=== PATIENT | female | born 1945 | race Caucasian/White ===

== ENCOUNTER 2020-01-16 07:29 | Outpatient (CLI) | payer MEDICARE, SELFPAY ==
[2020-01-16 08:27] LABS: Alanine Aminotransferase 16 U/L (4-35); Albumin Level 4.5 g/dL (3.5-5.1); Alkaline Phosphatase 92 U/L (38-126); Aspartate Amino Transferase 25 U/L (14-36); Bilirubin,Total 0.7 mg/dL (0.2-1.3); Blood Urea Nitrogen 21 mg/dL (7-17); Calcium 9.5 mg/dL (8.4-10.2); Carbon Dioxide 28 mmol/L (22-30); Chloride 101 mmol/L (98-107); Estimated Glomerular Filt Rate > 60; Glucose 146 mg/dL (65-105); Potassium 4.1 mmol/L (3.4-5.0); Sodium 137 mmol/L (137-145)
[2020-01-16 09:10] LABS: Hemoglobin A1C 7.9 % (<5.7)
[2020-01-16 09:13] LABS: Creatinine Urine 48.7 mg/dL
[2020-01-16 10:21] LABS: MALB Creatinine Ratio 1401.6 mg/g (0-30); Microalbumin Urine Random 682.6 mg/L (0-16.7)
== END 2020-01-16 07:30 | disposition home or self-care (01) ==
LOC: ANHLAB 07:33
PROVIDERS: PCP Internal Medicine; Visit Provider Internal Medicine
DX: E11.65 Type 2 diabetes mellitus with hyperglycemia (principal)
CPT/HCPCS: 36415; 80053; 82043; 83036

== ENCOUNTER 2020-04-17 07:06 | Outpatient (CLI) | payer MEDICARE, SELFPAY ==
[2020-04-17 08:06] LABS: Basophils Absolute Auto 0.1 K/mm3 (0.0-0.1); Basophils Percent Auto 0.6 % (0.2-1.2); Eosinophils Absolute Auto 0.1 K/mm3 (0-0.3); Eosinophils Percent Auto 1.7 % (0-4.4); Hematocrit 42.2 % (37.0-47.0); Hemoglobin 13.9 g/dL (12.0-15.0); Immature Granulocyte Absolute 0.04 K/mm3 (0.00-0.031); Immature Granulocyte Percent A 0.5 % (0-0.5); Lymphocytes Absolute Auto 1.83 K/mm3 (0.9-3.2); Lymphocytes Percent Auto 22.2 % (18.3-44.2); Mean Corpuscular HGB Conc 32.9 g/dl (32-36); Mean Corpuscular Hemoglobin 29.6 pg (26-34); Mean Corpuscular Volume 89.8 fl (80-100); Mean Platelet Volume 10.4 fl (7.4-10.4); Monocytes Absolute Auto 0.8 K/mm3 (0.1-0.6); Monocytes Percent Auto 9.3 % (2.6-8.5); Neutrophils Absolute Auto 5.4 K/mm3 (1.3-6.7); Neutrophils Percent Auto 65.7 % (45.5-73.1); Platelet Count Result 187 k/mm3 (150-375); Red Cell Distribution Width 13.3 % (11.5-14.5); White Blood Count 8.2 K/mm3 (4.5-10.0)
[2020-04-17 08:21] LABS: Alanine Aminotransferase 18 U/L (4-35); Albumin Level 4.2 g/dL (3.5-5.1); Alkaline Phosphatase 86 U/L (38-126); Anion Gap 11 mmol/L (8-16); Aspartate Amino Transferase 25 U/L (14-36); Bilirubin,Total 0.5 mg/dL (0.2-1.3); Blood Urea Nitrogen 22 mg/dL (7-17); Calcium 9.3 mg/dL (8.4-10.2); Carbon Dioxide 28 mmol/L (22-30); Chloride 105 mmol/L (98-107); Cholesterol 158 mg/dL (0-200); Estimated Glomerular Filt Rate 55; Glucose 127 mg/dL (65-105); HDL Direct 34 mg/dL; Potassium 3.8 mmol/L (3.4-5.0); Sodium 144 mmol/L (137-145); Triglycerides 168 mg/dL (<150)
[2020-04-17 08:31] LABS: LDL Cholesterol Direct 83 mg/dL
[2020-04-17 08:39] LABS: Hemoglobin A1C 6.8 % (<5.7)
[2020-04-17 08:49] LABS: Creatinine Urine 55.6 mg/dL
[2020-04-17 09:04] LABS: Vitamin D 25 Hydroxy 39.9 ng/mL
[2020-04-17 10:23] LABS: Microalbumin Urine Random 682.8 mg/L (0-16.7)
== END 2020-04-17 07:07 | disposition home or self-care (01) ==
PROVIDERS: PCP Internal Medicine; Visit Provider Internal Medicine
DX: E55.9 Vitamin D deficiency, unspecified (principal); E11.69 Type 2 diabetes mellitus with other specified complication; E78.5 Hyperlipidemia, unspecified
CPT/HCPCS: 36415; 80053; 80061; 82043; 82306; 83036; 85025

== ENCOUNTER 2020-04-24 10:20 | Outpatient (CLI) | payer MEDICARE, SELFPAY ==
--- NOTE | ~2020-04-24 | XR_ITS ---
XR shoulder RT min 2V DATE: 04/24/2020 10:43 INDICATION: Right anterior shoulder pain TECHNIQUE: 4 views COMPARISON: None FINDINGS: There is joint space narrowing and spurring at the acromioclavicular joint. No fracture or dislocation, periosteal reaction or bone destruction. No abnormal soft tissue calcific ation of the right shoulder. Degenerative changes of the cervical and thoracic spine are noted. IMPRESSION: Degenerative change at acromioclavicular joint Reviewed, dictated and finalized at location A.
== END 2020-04-24 10:21 | disposition home or self-care (01) ==
LOC: ANHIMG 10:24
PROVIDERS: PCP Internal Medicine; Visit Provider Internal Medicine
DX: M25.519 Pain in unspecified shoulder (principal)
CPT/HCPCS: 73030

== ENCOUNTER 2020-04-27 09:52 | Outpatient (CLI) | payer MEDICARE, SELFPAY ==
[2020-04-27 10:19] LABS: Total Protein Urine Random 73 mg/dL
[2020-04-27 10:28] LABS: Total Protein Urine 24 Hr 1241 MG/DAY (28-141); Total Volume 24 Hour Urine 1700 ml
== END 2020-04-27 09:53 | disposition home or self-care (01) ==
PROVIDERS: PCP Internal Medicine; Visit Provider Internal Medicine
DX: E11.29 Type 2 diabetes mellitus with other diabetic kidney complication (principal); R80.9 Proteinuria, unspecified
CPT/HCPCS: 81050; 84156

== ENCOUNTER 2020-05-06 13:15 | Outpatient (CLI) | payer MEDICARE, SELFPAY ==
--- NOTE | ~2020-05-06 | US_ITS ---
US renal BI 05/06/2020 13:47 Procedure: Realtime transabdominal ultrasound of the kidneys and bladder. Indication: Proteinuria Comparison: No prior studies for comparison. Findings: Renal echotexture is normal bilaterally without hydronephrosis, contour deforming mass or r enal calculus. The right kidney measures 10.1 cm and left kidney measures 10.2 cm. Bladder within no rmal limits. Impression: 1: Unremarkable renal ultrasound. No stones, masses or hydronephrosis. Reviewed, dictated and finalized at location B. Impression: 1: Unremarkable renal ultrasound. No stones, masses or hydronephrosis.
== END 2020-05-06 13:16 | disposition home or self-care (01) ==
PROVIDERS: PCP Internal Medicine; Visit Provider Internal Medicine
DX: R80.9 Proteinuria, unspecified (principal)
CPT/HCPCS: 76775

== ENCOUNTER 2020-05-12 16:13 | Outpatient (CLI) | payer MEDICARE, SELFPAY ==
--- NOTE | ~2020-05-12 | MM_ITS ---
EXAMINATION: MM screening [facility] BI w madhavi HISTORY: Screening mammogram TECHNIQUE: Craniocaudal and mediolateral oblique 3-D tomosynthesis images were obtained and synthetic 2-D images were generated. CAD analysis was submitted and interpreted. COMPARISON: 02/27/2019, 01/02/2012, 01/05/2011 BREAST PARENCHYMAL COMPOSITION: There are scattered areas of fibroglandular density. FINDINGS: Scattered benign-appearing calcifications are present. There is no evidence of suspicious m ass, calcification, or architectural distortion to suggest malignancy in either breast. There has bee n no suspicious interval change. IMPRESSION: 1. No mammographic evidence of malignancy. 2. Recommend routine screening mammography in one year. BI-RADS Category 2: Benign finding(s). Reviewed, dictated and finalized at location A.
== END 2020-05-12 16:14 | disposition home or self-care (01) ==
PROVIDERS: PCP Internal Medicine; Visit Provider Internal Medicine
DX: Z12.31 Encounter for screening mammogram for malignant neoplasm of breast (principal)
CPT/HCPCS: 77063; 77067

== ENCOUNTER 2020-06-15 10:48 | Outpatient (CLI) | payer MEDICARE, SELFPAY ==
[2020-06-15 11:52] LABS: Hematocrit 43.9 % (37.0-47.0); Hemoglobin 14.8 g/dL (12.0-15.0); Mean Corpuscular HGB Conc 33.7 g/dl (32-36); Mean Platelet Volume 10.4 fl (7.4-10.4); Platelet Count Result 192 k/mm3 (150-375); Red Blood Count 4.93 M/mm3 (4.2-5.4); Red Cell Distribution Width 13.4 % (11.5-14.5); White Blood Count 7.9 K/mm3 (4.5-10.0)
[2020-06-15 12:02] LABS: Add Urine Microscopic? YES; Appearance Urine Clear (Clear); Bacteria Urine Trace /hpf; Bilirubin Urine Negative (Negative); Blood Urine Negative (Negative); Color Urine Straw (Yellow); Glucose Urine UA 3+ mg/dL (Negative); Ketones Urine Negative (Negative); Leukocyte Esterase Ur Negative LEU/UL (NEGATIVE); Nitrate Urine Negative (Negative); Protein Urine 2+ mg/dL (Negative); RBC Urine 0-2 /hpf (0-2); Specific Grav Ur 1.016 (1.001-1.035); Squamous Epithelial Cell Urine Occasional /hpf (Few); Urobilinogen Urine Negative mg/dL (<2.0); WBC Urine 0-3 /hpf (0-3)
[2020-06-15 12:04] LABS: Albumin Level 4.3 g/dL (3.5-5.1); Anion Gap 7 mmol/L (8-16); Blood Urea Nitrogen 20 mg/dL (7-17); Calcium 9.8 mg/dL (8.4-10.2); Carbon Dioxide 32 mmol/L (22-30); Chloride 103 mmol/L (98-107); Estimated Glomerular Filt Rate > 60; Glucose 135 mg/dL (65-105); Phosphorus 3.9 mg/dL (2.5-4.5); Sodium 142 mmol/L (137-145)
[2020-06-15 12:10] LABS: Creatinine Urine 43.7 mg/dL; Total Protein Urine Random 84 mg/dL
[2020-06-15 12:11] LABS: Complement C3 157 mg/dL (88-165)
[2020-06-15 12:15] LABS: Parathyroid Intact 17.5 pg/mL (7.5-53.5)
[2020-06-15 12:52] LABS: Erythrocyte Sedimentation Rate 24 mm/hr (0-20)
[2020-06-17 14:34] LABS: Complement Total CH50 >60 U/mL (31-60)
[2020-06-17 23:23] LABS: Anti Nuclear Antibody Pattern Nuclear, Nucleolar
[2020-06-18 14:42] LABS: Kappa\\Lambda Light Chains 1.37 (0.26-1.65); Lambda Light Chain 19.6 mg/L (5.7-26.3)
== END 2020-06-15 10:49 | disposition home or self-care (01) ==
LOC: ANHLAB 10:52
PROVIDERS: PCP Internal Medicine; Visit Provider Internal Medicine Nephrology
DX: N18.30 Chronic kidney disease, stage 3 unspecified (principal); R80.1 Persistent proteinuria, unspecified
CPT/HCPCS: 36415; 80069; 81001; 82570; 83883; 83970; 84156; 85027; 85652; 86038; 86039; 86160; 86162; 86334

== ENCOUNTER 2020-06-22 07:11 | Outpatient (CLI) | payer MEDICARE, SELFPAY ==
[2020-06-25 15:05] LABS: Kappa & Lambda Quant. Has been added
[2020-07-02 08:06] LABS: Measured Kappa Chains 4.08 mg/dL (<2.00); Total Kappa Chains 77.52 mg/24 h
== END 2020-06-22 07:12 | disposition home or self-care (01) ==
PROVIDERS: PCP Internal Medicine; Visit Provider Internal Medicine Nephrology
DX: N18.31 Chronic kidney disease, stage 3a (principal); R80.1 Persistent proteinuria, unspecified
CPT/HCPCS: 83883; 86335

== ENCOUNTER 2020-07-22 07:12 | Outpatient (CLI) | payer MEDICARE, SELFPAY ==
[2020-07-22 08:24] LABS: Alanine Aminotransferase 15 U/L (4-35); Albumin Level 4.1 g/dL (3.5-5.1); Alkaline Phosphatase 95 U/L (38-126); Anion Gap 6 mmol/L (8-16); Aspartate Amino Transferase 24 U/L (14-36); Bilirubin,Total 0.6 mg/dL (0.2-1.3); Blood Urea Nitrogen 22 mg/dL (7-17); Calcium 9.9 mg/dL (8.4-10.2); Carbon Dioxide 30 mmol/L (22-30); Chloride 105 mmol/L (98-107); Estimated Glomerular Filt Rate 55; Glucose 132 mg/dL (65-105); Potassium 4.1 mmol/L (3.4-5.0); Sodium 141 mmol/L (137-145)
[2020-07-22 08:26] LABS: Hemoglobin A1C 6.9 % (<5.7)
[2020-07-22 08:55] LABS: Thyroid Stimulating Hormone 0.121 uIU/mL (0.465-4.680)
[2020-07-22 10:26] LABS: Creatinine Urine 68.9 mg/dL
[2020-07-22 12:00] LABS: Microalbumin Urine Random > 1140.0 mg/L (0-16.7)
== END 2020-07-22 07:13 | disposition home or self-care (01) ==
PROVIDERS: PCP Internal Medicine; Visit Provider Internal Medicine
DX: E11.65 Type 2 diabetes mellitus with hyperglycemia (principal); E03.9 Hypothyroidism, unspecified; Z79.4 Long term (current) use of insulin
CPT/HCPCS: 36415; 80053; 82043; 83036; 84443

== ENCOUNTER 2020-07-24 09:28 | Outpatient (CLI) | payer MEDICARE, SELFPAY ==
[2020-07-24 10:02] LABS: Basophils Absolute Auto 0.1 K/mm3 (0.0-0.1); Basophils Percent Auto 0.6 % (0.2-1.2); Eosinophils Absolute Auto 0.1 K/mm3 (0-0.3); Eosinophils Percent Auto 1.1 % (0-4.4); Hematocrit 46.1 % (37.0-47.0); Hemoglobin 14.9 g/dL (12.0-15.0); Immature Granulocyte Absolute 0.07 K/mm3 (0.00-0.031); Immature Granulocyte Percent A 0.8 % (0-0.5); Lymphocytes Absolute Auto 1.55 K/mm3 (0.9-3.2); Lymphocytes Percent Auto 18.3 % (18.3-44.2); Mean Corpuscular HGB Conc 32.3 g/dl (32-36); Mean Corpuscular Hemoglobin 28.7 pg (26-34); Mean Corpuscular Volume 88.8 fl (80-100); Monocytes Absolute Auto 0.6 K/mm3 (0.1-0.6); Monocytes Percent Auto 7.3 % (2.6-8.5); Neutrophils Absolute Auto 6.1 K/mm3 (1.3-6.7); Neutrophils Percent Auto 71.9 % (45.5-73.1); Platelet Count Result 208 k/mm3 (150-375); Red Blood Count 5.19 M/mm3 (4.2-5.4); Red Cell Distribution Width 13.7 % (11.5-14.5); White Blood Count 8.5 K/mm3 (4.5-10.0)
[2020-07-24 14:40] LABS: Alanine Aminotransferase 17 U/L (4-35); Albumin Level 4.4 g/dL (3.5-5.1); Alkaline Phosphatase 99 U/L (38-126); Anion Gap 10 mmol/L (8-16); Aspartate Amino Transferase 24 U/L (14-36); Bilirubin,Total 0.7 mg/dL (0.2-1.3); Blood Urea Nitrogen 23 mg/dL (7-17); Calcium 9.9 mg/dL (8.4-10.2); Carbon Dioxide 28 mmol/L (22-30); Chloride 104 mmol/L (98-107); Estimated Glomerular Filt Rate > 60; Glucose 173 mg/dL (65-105); Potassium 3.9 mmol/L (3.4-5.0); Sodium 142 mmol/L (137-145)
[2020-07-24 15:27] LABS: Immunoglobulin A 317 mg/dL (70-400); Immunoglobulin G 1319 mg/dL (700-1600); Immunoglobulin M 65 mg/dL (40-230)
[2020-07-27 22:07] LABS: Albumin 4.1 g/dL (3.8-4.8); Alpha 1 Globulin 0.3 g/dL (0.2-0.3); Alpha 2 Globulin 1.3 g/dL (0.5-0.9); Beta 1 Globulin 0.5 g/dL (0.4-0.6); Gamma Globulin 1.2 g/dL (0.8-1.7); Protein, Total 7.8 g/dL (6.1-8.1)
[2020-07-29 01:37] LABS: Kappa\\Lambda Light Chains 1.28 (0.26-1.65); Lambda Light Chain 23.1 mg/L (5.7-26.3)
[2020-07-29 20:35] LABS: Beta-2-Microglobulin 2.93 mg/L (<=2.51)
== END 2020-07-24 09:29 | disposition home or self-care (01) ==
LOC: ANHLAB 09:30
PROVIDERS: PCP Internal Medicine; Visit Provider Internal Medicine Hematology & Oncology
DX: D47.2 Monoclonal gammopathy (principal)
CPT/HCPCS: 36415; 80053; 82232; 82784; 83883; 84155; 84165; 85025

== ENCOUNTER 2020-09-08 09:00 | Outpatient (CLI) | payer MEDICARE, SELFPAY ==
[2020-09-08 09:55] LABS: Potassium 4.2 mmol/L (3.4-5.0)
[2020-09-08 10:04] LABS: Creatinine Urine 49.3 mg/dL; Total Protein Urine Random 101 mg/dL; Ur Ttl Prot Creatinine Ratio 2.05 mg/mg (0-0.20)
[2020-09-08 10:05] LABS: Albumin Level 4.1 g/dL (3.5-5.1); Anion Gap 5 mmol/L (8-16); Blood Urea Nitrogen 20 mg/dL (7-17); Calcium 9.7 mg/dL (8.4-10.2); Carbon Dioxide 32 mmol/L (22-30); Chloride 103 mmol/L (98-107); Estimated Glomerular Filt Rate > 60; Glucose 159 mg/dL (65-105); Phosphorus 3.7 mg/dL (2.5-4.5); Sodium 140 mmol/L (137-145)
== END 2020-09-08 09:01 | disposition home or self-care (01) ==
PROVIDERS: PCP Internal Medicine; Visit Provider Internal Medicine Nephrology
DX: N18.30 Chronic kidney disease, stage 3 unspecified (principal); R80.9 Proteinuria, unspecified
CPT/HCPCS: 36415; 80069; 82570; 84156

== ENCOUNTER → 2020-09-28 02:53 | Outpatient (CLI) | payer MEDICARE, SELFPAY ==
[2020-09-28 21:05] LABS: SARS-CoV-2 RNA PCR Negative
== END ==
PROVIDERS: PCP Internal Medicine; Visit Provider Internal Medicine Nephrology
DX: Z01.812 Encounter for preprocedural laboratory examination (principal); Z20.822 Contact with and (suspected) exposure to COVID-19
CPT/HCPCS: C9803; U0003; U0005

== ENCOUNTER 2020-10-01 08:07 | Outpatient (CLI) | payer MEDICARE, SELFPAY ==
[2020-09-17 14:18] VITALS: BMI 39.6
[2020-10-01] VITALS (11 sets, daily range): BP systolic 110–160; BP diastolic 33–91; PULSE 45–59; RESP 16–18; O2SAT 97–99
--- NOTE | ~2020-10-01 | US_ITS ---
EXAMINATION: US biopsy renal DATE: 10/01/2020 10:26 INDICATION: Proteinuria. TECHNIQUE: The procedure including the risks, benefits, and alternatives was discussed with the patie nt. Risks discussed included bleeding and infection. The patient understood the risks and agreed to p roceed. A timeout was performed to verify the patient's name, date of , and procedure to be p erformed. The skin overlying the left kidney was prepped and draped in usual sterile fashion. Anest hetic was administered with 1% lidocaine subcutaneously. An 18 gauge core biopsy needle was then use d to obtain 3 core biopsy specimens under continuous sonographic guidance. The entry site was cleaned and dressed. There were no immediate complications. FINDINGS: Ultrasound images demonstrate the needle in the kidney. IMPRESSION: 1. Ultrasound-guided random left kidney core needle biopsy. Reviewed, dictated and finalized at location A.
[2020-10-01 09:01] LABS: Mean Platelet Volume 10.3 fl (7.4-10.4); Platelet Count Result 188 k/mm3 (150-375)
[2020-10-01 09:19] LABS: INR 0.9; Prothrombin Time 12.9 Seconds (11.1-14.7)
[2020-10-01 11:00] LABS: Glucose Point of Care 117 (65-105)
== END 2020-10-01 14:56 | disposition home or self-care (01) ==
PROVIDERS: Radiology Diagnostic Radiology; PCP Internal Medicine; Visit Provider Internal Medicine Nephrology
DX: R80.1 Persistent proteinuria, unspecified (principal); N26.9 Renal sclerosis, unspecified; E11.9 Type 2 diabetes mellitus without complications; Z51.81 Encounter for therapeutic drug level monitoring; Z79.899 Other long term (current) drug therapy
CPT/HCPCS: 36415; 50200; 76942; 82948; 85049; 85610; 88300; 88305; 88313; 88329; 88346; 88348; 88350

== ENCOUNTER 2021-01-26 07:45 | Outpatient (CLI) | payer MEDICARE, SELFPAY ==
[2021-01-26 12:58] LABS: Basophils Percent Auto 0.4 % (0.2-1.2); Eosinophils Absolute Auto 0.1 K/mm3 (0-0.3); Eosinophils Percent Auto 1.3 % (0-4.4); Hematocrit 43.4 % (37.0-47.0); Hemoglobin 13.6 g/dL (12.0-15.0); Immature Granulocyte Absolute 0.06 K/mm3 (0.00-0.031); Immature Granulocyte Percent A 0.8 % (0-0.5); Lymphocytes Absolute Auto 1.62 K/mm3 (0.9-3.2); Lymphocytes Percent Auto 20.5 % (18.3-44.2); Mean Corpuscular HGB Conc 31.3 g/dl (32-36); Mean Corpuscular Hemoglobin 28.6 pg (26-34); Mean Corpuscular Volume 91.2 fl (80-100); Mean Platelet Volume 10.6 fl (7.4-10.4); Monocytes Absolute Auto 0.7 K/mm3 (0.1-0.6); Monocytes Percent Auto 8.9 % (2.6-8.5); Neutrophils Absolute Auto 5.4 K/mm3 (1.3-6.7); Neutrophils Percent Auto 68.1 % (45.5-73.1); Platelet Count Result 194 k/mm3 (150-375); Red Blood Count 4.76 M/mm3 (4.2-5.4); Red Cell Distribution Width 13.7 % (11.5-14.5); White Blood Count 7.9 K/mm3 (4.5-10.0)
[2021-01-26 13:07] LABS: Alanine Aminotransferase 16 U/L (4-35); Alkaline Phosphatase 101 U/L (38-126); Anion Gap 9 mmol/L (8-16); Aspartate Amino Transferase 24 U/L (14-36); Bilirubin,Total 0.7 mg/dL (0.2-1.3); Blood Urea Nitrogen 17 mg/dL (7-17); Calcium 9.7 mg/dL (8.4-10.2); Carbon Dioxide 28 mmol/L (22-30); Chloride 104 mmol/L (98-107); Estimated Glomerular Filt Rate > 60; Glucose 124 mg/dL (65-105); Hemoglobin A1C 6.8 % (<5.7); Potassium 4.1 mmol/L (3.4-5.0); Sodium 141 mmol/L (137-145)
[2021-01-26 13:07] LABS: Phosphorus 3.9 mg/dL (2.5-4.5)
[2021-01-26 13:10] LABS: Creatinine Urine 65.9 mg/dL; Total Protein Urine Random 98 mg/dL; Ur Ttl Prot Creatinine Ratio 1.49 mg/mg (0-0.20)
[2021-01-26 13:13] LABS: Rheumatoid Factor < 8.6 IU/ML (<12)
[2021-01-26 13:14] LABS: Immunoglobulin A 288 mg/dL (70-400); Immunoglobulin G 1207 mg/dL (700-1600); Immunoglobulin M 57 mg/dL (40-230)
[2021-01-26 13:27] LABS: Creatinine Urine 66.4 mg/dL
[2021-01-26 13:49] LABS: MALB Creatinine Ratio 844.6 mg/g (0-30); Microalbumin Urine Random 560.8 mg/L (0-16.7)
[2021-01-28 23:03] LABS: Kappa\\Lambda Light Chains 1.41 (0.26-1.65); Lambda Light Chain 23.4 mg/L (5.7-26.3)
[2021-01-29 10:38] LABS: SM Antibody <1.0; SM/RNP Antibody <1.0
[2021-01-29 10:42] LABS: SS-A <1.0; SS-B <1.0
[2021-01-30 03:30] LABS: Albumin 3.7 g/dL (3.8-4.8); Alpha 1 Globulin 0.3 g/dL (0.2-0.3); Alpha 2 Globulin 1.2 g/dL (0.5-0.9); Beta 1 Globulin 0.5 g/dL (0.4-0.6); Gamma Globulin 1.1 g/dL (0.8-1.7); Protein, Total 7.3 g/dL (6.1-8.1)
[2021-01-30 12:33] LABS: ANCA Screen Negative (Negative)
[2021-01-31 18:46] LABS: Cryoglobulin, QL Negative (Negative)
[2021-02-02 12:00] LABS: Anti Nuclear Antibody Pattern Nuclear, Nucleolar
[2021-02-04 22:07] LABS: Anti Glomerular Basement Memb <1.0 AI (<1.0)
== END 2021-01-26 07:46 | disposition home or self-care (01) ==
PROVIDERS: PCP Internal Medicine; Referring Provider Internal Medicine Hematology & Oncology; Visit Provider Internal Medicine Nephrology
DX: E03.9 Hypothyroidism, unspecified (principal); N18.2 Chronic kidney disease, stage 2 (mild); R80.1 Persistent proteinuria, unspecified; R76.0 Raised antibody titer; D47.2 Monoclonal gammopathy; E11.29 Type 2 diabetes mellitus with other diabetic kidney complication; E11.69 Type 2 diabetes mellitus with other specified complication
CPT/HCPCS: 36415; 80053; 82043; 82570; 82595; 82784; 83036; 83520; 83883; 84100; 84155; 84156; 84165; 84443; 85025; 86021; 86038; 86039; 86225; 86235; 86430

== ENCOUNTER 2021-07-27 12:15 | Outpatient (CLI) | payer MEDICARE, SELFPAY ==
[2021-07-27 12:49] LABS: Albumin Level 4.4 g/dL (3.5-5.1); Anion Gap 11 mmol/L (8-16); Blood Urea Nitrogen 24 mg/dL (7-17); Calcium 9.7 mg/dL (8.4-10.2); Carbon Dioxide 27 mmol/L (22-30); Chloride 101 mmol/L (98-107); Estimated Glomerular Filt Rate > 60; Glucose 160 mg/dL (65-110); Phosphorus 4.1 mg/dL (2.5-4.5); Potassium 4.4 mmol/L (3.4-5.0); Sodium 139 mmol/L (137-145)
[2021-07-27 12:50] LABS: Creatinine Urine 53.4 mg/dL; Total Protein Urine Random 150 mg/dL; Ur Ttl Prot Creatinine Ratio 2.81 mg/mg (0-0.20)
== END 2021-07-27 12:16 | disposition home or self-care (01) ==
LOC: ANHLAB 12:19
PROVIDERS: PCP Internal Medicine; Visit Provider Internal Medicine Nephrology
DX: N18.30 Chronic kidney disease, stage 3 unspecified (principal); R80.1 Persistent proteinuria, unspecified
CPT/HCPCS: 36415; 80069; 82570; 84156

== ENCOUNTER 2021-08-24 08:35 | Outpatient (CLI) | payer MEDICARE, SELFPAY ==
[2021-08-24 15:10] LABS: Hematocrit 44.6 % (37.0-47.0); Hemoglobin 14.6 g/dL (12.0-15.0); Mean Corpuscular HGB Conc 32.7 g/dl (32-36); Mean Corpuscular Hemoglobin 29.3 pg (26-34); Mean Corpuscular Volume 89.4 fl (80-100); Mean Platelet Volume 10.7 fl (7.4-10.4); Platelet Count Result 200 k/mm3 (150-375); Red Blood Count 4.99 M/mm3 (4.2-5.4); White Blood Count 7.6 K/mm3 (4.5-10.0)
[2021-08-24 15:16] LABS: Cholesterol 212 mg/dL (0-200); HDL Direct 30 mg/dL; Triglycerides 224 mg/dL (<150)
[2021-08-24 15:26] LABS: LDL Cholesterol Direct 117 mg/dL
[2021-08-24 15:30] LABS: Vitamin D 25 Hydroxy 50.6 ng/mL
[2021-08-24 16:00] LABS: MALB Creatinine Ratio 888.7 mg/g (0-30); Microalbumin Urine Random 613.2 mg/L (0-16.7)
[2021-08-24 18:03] LABS: Hemoglobin A1C 6.9 % (<5.7)
== END 2021-08-24 08:36 | disposition home or self-care (01) ==
LOC: ANHWCLAB 08:39
PROVIDERS: PCP Internal Medicine; Visit Provider Internal Medicine
DX: E03.9 Hypothyroidism, unspecified (principal); E11.21 Type 2 diabetes mellitus with diabetic nephropathy; I10 Essential (primary) hypertension; Z79.4 Long term (current) use of insulin; E78.2 Mixed hyperlipidemia
CPT/HCPCS: 36415; 80061; 82043; 82306; 83036; 85027

== ENCOUNTER 2021-12-27 13:26 | Outpatient (CLI) | payer MEDICARE, SELFPAY ==
--- NOTE | ~2021-12-27 | MM_ITS ---
EXAMINATION: MM screening [facility] BI w madhavi HISTORY: Screening TECHNIQUE: Craniocaudal and mediolateral oblique 3-D tomosynthesis images were obtained and synthetic 2-D images were generated. CAD analysis was submitted and interpreted. COMPARISON: Comparison to multiple prior studies sequentially, with oldest reviewed study dated 01/01. BREAST PARENCHYMAL COMPOSITION: There are scattered areas of fibroglandular density. FINDINGS: There is no evidence of suspicious mass, calcification, or architectural distortion to sugg est malignancy in either breast. There has been no suspicious interval change. IMPRESSION: 1. No mammographic evidence of malignancy. 2. Recommend routine screening mammography in one year. BI-RADS Category 1: Negative Reviewed, dictated and finalized at location A.
--- NOTE | ~2021-12-27 | DEXA_ITS ---
Bone Density Report Name: SHARLA SAUL Age: 76 Sex: Female Ethnicity: White Date of : 1945 Indication: postmenopausal; screening for osteoporosis; height loss; hysterectomy; Referring Provider: STEF MONTES Study: Bone densitometry was performed. Exam Date: December 27, 2021 Accession number: [id number] Bone Density: Region BMD T-score Z-score Classification AP Spine(L1-L4) 1.454 3.7 6.0 Normal Femoral Neck (Left) 1.063 1.9 4.0 Normal Total Hip (Left) 1.289 2.8 4.6 Normal Femoral Neck (Right) 1.073 2.0 4.0 Normal Total Hip (Right) 1.270 2.7 4.4 Normal Total Hip Mean 1.280 2.8 4.5 Normal World Health Organization criteria for BMD impression classify patients as: Normal (T-score at or above -1.0), Osteopenia (T-score between -1.0 and -2.5), or Osteoporosis (T-score at or below -2.5). 10-year Fracture Risk: FRAX not reported because: All T-scores for Spine Total, Hip Total, Femoral Neck at or above -1.0 Previous Exams: Region Exam Age BMD T-score BMD Change BMD Change Date g/cm2 vs Baseline vs Previous AP Spine (L1-L4) 12/27/2021 76 1.454 3.7 0.014 (1.0%) 0.014 (1.0%) 03/13/2019 73 1.440 3.6 Total Hip(Left) 12/27/2021 76 1.289 2.8 -0.089 (-6.4%) -0.089 (-6.4%) 03/13/2019 73 1.378 3.6 Total Hip(Right) 12/27/2021 76 1.270 2.7 -0.094 (-6.9%) -0.094 (-6.9%) 03/13/2019 73 1.364 3.5 *Denotes significance at 95% confidence level, LSC for AP Spine = 0.022 g/cm2, LSC for Total Hip = 0.027 g/cm2 Clinical Information Provided by Patient: Has used the following medications: Vitamin D, Calcium Has the following medical conditions: Hysterectomy Patient maximum height was 64 Menopause Age: 48 No regular weight bearing exercise Onset of menses at age 12 Number of children 0 Impression: The patient has normal bone mass. The BMD for the Total Hip(Left) decreased, changing by -6.4% since the last DXA exam. The BMD for the Total Hip(Right) decreased, changing by -6.9% since the last DXA exam. Discussion: LOW RISK OF FRACTURE; BONE DENSITY IS WELL ABOVE THE MINIMUM DESIRABLE LEVEL AND ABOVE AVERAGE FOR AGE AND SEX AT ALL SKELETAL SITES TESTED. This person's bone density is above expected limits for age and sex. This is rarely clinically significant, but should be pursued if there are significant musculoskeletal complaints. The patient should follow a healthful lifestyle (good nutrition with adequate calciu
== END 2021-12-27 13:27 | disposition home or self-care (01) ==
PROVIDERS: PCP Internal Medicine; Visit Provider Internal Medicine
DX: Z12.31 Encounter for screening mammogram for malignant neoplasm of breast (principal); Z78.0 Asymptomatic menopausal state
CPT/HCPCS: 77063; 77067; 77080

== ENCOUNTER 2022-01-18 08:48 | Outpatient (CLI) | payer MEDICARE, SELFPAY ==
[2022-01-18 09:30] LABS: Basophils Absolute Auto 0.1 K/mm3 (0.0-0.1); Basophils Percent Auto 0.6 % (0.2-1.2); Eosinophils Absolute Auto 0.1 K/mm3 (0-0.3); Eosinophils Percent Auto 1.4 % (0-4.4); Hematocrit 40.4 % (37.0-47.0); Hemoglobin 13.2 g/dL (12.0-15.0); Immature Granulocyte Absolute 0.05 K/mm3 (0.00-0.031); Immature Granulocyte Percent A 0.6 % (0-0.5); Lymphocytes Percent Auto 21.9 % (18.3-44.2); Mean Corpuscular HGB Conc 32.7 g/dl (32-36); Mean Corpuscular Hemoglobin 29.3 pg (26-34); Mean Corpuscular Volume 89.6 fl (80-100); Monocytes Absolute Auto 0.7 K/mm3 (0.1-0.6); Monocytes Percent Auto 8.6 % (2.6-8.5); Neutrophils Absolute Auto 5.2 K/mm3 (1.3-6.7); Neutrophils Percent Auto 66.9 % (45.5-73.1); Platelet Count Result 182 k/mm3 (150-375); Red Blood Count 4.51 M/mm3 (4.2-5.4); Red Cell Distribution Width 13.8 % (11.5-14.5); White Blood Count 7.8 K/mm3 (4.5-10.0)
[2022-01-18 09:40] LABS: Alanine Aminotransferase 16 U/L (6-35); Albumin Level 4.1 g/dL (3.5-5.1); Alkaline Phosphatase 82 U/L (38-126); Anion Gap 7 mmol/L (8-16); Aspartate Amino Transferase 22 U/L (14-36); Bilirubin,Total 0.6 mg/dL (0.2-1.3); Blood Urea Nitrogen 24 mg/dL (7-17); Calcium 9.4 mg/dL (8.4-10.2); Carbon Dioxide 26 mmol/L (22-30); Chloride 106 mmol/L (98-107); Estimated Glomerular Filt Rate 49; Glucose 187 mg/dL (65-110); Phosphorus 3.8 mg/dL (2.5-4.5); Sodium 139 mmol/L (137-145)
[2022-01-18 09:49] LABS: Immunoglobulin A 271 mg/dL (70-400); Immunoglobulin G 997 mg/dL (700-1600); Immunoglobulin M 49 mg/dL (40-230)
[2022-01-18 10:05] LABS: Creatinine Urine 34.2 mg/dL; Total Protein Urine Random 55 mg/dL; Ur Ttl Prot Creatinine Ratio 1.61 mg/mg (0-0.20)
[2022-01-20 19:04] LABS: Albumin 3.6 g/dL (3.8-4.8); Alpha 1 Globulin 0.3 g/dL (0.2-0.3); Alpha 2 Globulin 1.2 g/dL (0.5-0.9); Beta 1 Globulin 0.4 g/dL (0.4-0.6); Protein, Total 6.9 g/dL (6.1-8.1)
[2022-01-21 05:58] LABS: Kappa\\Lambda Light Chains 1.14 (0.26-1.65); Lambda Light Chain 27.7 mg/L (5.7-26.3)
== END 2022-01-18 08:49 | disposition home or self-care (01) ==
LOC: ANHLAB 08:53
PROVIDERS: PCP Internal Medicine; Referring Provider Internal Medicine Hematology & Oncology; Visit Provider Internal Medicine Nephrology
DX: D47.2 Monoclonal gammopathy (principal); I10 Essential (primary) hypertension
CPT/HCPCS: 36415; 80053; 80069; 82570; 82784; 83883; 84155; 84156; 84165; 85025

== ENCOUNTER 2022-02-22 10:18 | Outpatient (CLI) | payer MEDICARE, SELFPAY ==
[2022-02-22 11:33] LABS: Albumin Level 4.3 g/dL (3.5-5.1); Anion Gap 7 mmol/L (8-16); Blood Urea Nitrogen 21 mg/dL (7-17); Calcium 9.3 mg/dL (8.4-10.2); Carbon Dioxide 33 mmol/L (22-30); Chloride 100 mmol/L (98-107); Estimated Glomerular Filt Rate > 60; Glucose 143 mg/dL (65-110); Phosphorus 3.6 mg/dL (2.5-4.5); Potassium 4.1 mmol/L (3.4-5.0); Sodium 140 mmol/L (137-145)
== END 2022-02-22 10:19 | disposition home or self-care (01) ==
PROVIDERS: PCP Internal Medicine; Visit Provider Internal Medicine Nephrology
DX: N18.31 Chronic kidney disease, stage 3a (principal); I10 Essential (primary) hypertension
CPT/HCPCS: 36415; 80069

== ENCOUNTER 2022-04-26 07:49 | Outpatient (CLI) | payer MEDICARE, SELFPAY ==
[2022-04-26 08:14] LABS: Alanine Aminotransferase 19 U/L (6-35); Albumin Level 4.3 g/dL (3.5-5.1); Alkaline Phosphatase 74 U/L (38-126); Anion Gap 15 mmol/L (8-16); Aspartate Amino Transferase 23 U/L (14-36); Bilirubin,Total 0.7 mg/dL (0.2-1.3); Blood Urea Nitrogen 18 mg/dL (7-17); Calcium 9.6 mg/dL (8.4-10.2); Carbon Dioxide 29 mmol/L (22-30); Chloride 100 mmol/L (98-107); Cholesterol 137 mg/dL (0-200); Estimated Glomerular Filt Rate > 60; Glucose 154 mg/dL (65-110); HDL Direct 31 mg/dL; Potassium 3.8 mmol/L (3.4-5.0); Sodium 144 mmol/L (137-145); Triglycerides 236 mg/dL (<150)
[2022-04-26 08:25] LABS: LDL Cholesterol Direct 68 mg/dL
[2022-04-26 08:44] LABS: Hemoglobin A1C 7.5 % (<5.7)
== END 2022-04-26 07:50 | disposition home or self-care (01) ==
LOC: ANHLAB 07:52
PROVIDERS: PCP Internal Medicine; Visit Provider Nurse Practitioner
DX: E11.9 Type 2 diabetes mellitus without complications (principal); E78.5 Hyperlipidemia, unspecified
CPT/HCPCS: 36415; 80053; 80061; 83036

== ENCOUNTER 2022-07-25 12:06 | Outpatient (CLI) | payer MEDICARE, SELFPAY ==
[2022-07-25 12:48] LABS: Hematocrit 40.9 % (37.0-47.0); Hemoglobin 13.6 g/dL (12.0-15.0); Mean Corpuscular HGB Conc 33.3 g/dl (32-36); Mean Corpuscular Hemoglobin 29.2 pg (26-34); Mean Platelet Volume 10.1 fl (7.4-10.4); Platelet Count Result 192 k/mm3 (150-375); Red Blood Count 4.65 M/mm3 (4.2-5.4); Red Cell Distribution Width 13.2 % (11.5-14.5); White Blood Count 8.4 K/mm3 (4.5-10.0)
[2022-07-25 12:59] LABS: Albumin Level 4.2 g/dL (3.5-5.1); Anion Gap 7 mmol/L (8-16); Blood Urea Nitrogen 27 mg/dL (7-17); Calcium 9.3 mg/dL (8.4-10.2); Carbon Dioxide 31 mmol/L (22-30); Chloride 100 mmol/L (98-107); Estimated Glomerular Filt Rate 54; Glucose 148 mg/dL (65-110); Phosphorus 4.1 mg/dL (2.5-4.5); Sodium 138 mmol/L (137-145)
[2022-07-25 13:01] LABS: Total Protein Urine Random 63 mg/dL; Ur Ttl Prot Creatinine Ratio 1.07 mg/mg (0-0.20)
[2022-07-25 13:11] LABS: Parathyroid Intact 9.6 pg/mL (7.5-53.5)
== END 2022-07-25 12:07 | disposition home or self-care (01) ==
LOC: ANHLAB 12:12
PROVIDERS: PCP Nurse Practitioner; Visit Provider Internal Medicine Nephrology
DX: N18.31 Chronic kidney disease, stage 3a (principal)
CPT/HCPCS: 36415; 80069; 82570; 83970; 84156; 85027

== ENCOUNTER 2022-11-21 11:20 | Outpatient (CLI) | payer MEDICARE, SELFPAY ==
[2022-11-21 11:55] LABS: Hematocrit 43.4 % (37.0-47.0); Mean Corpuscular HGB Conc 32.3 g/dl (32-36); Mean Corpuscular Hemoglobin 29.5 pg (26-34); Mean Corpuscular Volume 91.4 fl (80-100); Mean Platelet Volume 10.4 fl (7.4-10.4); Platelet Count Result 201 k/mm3 (150-375); Red Blood Count 4.75 M/mm3 (4.2-5.4); Red Cell Distribution Width 13.6 % (11.5-14.5); White Blood Count 8.5 K/mm3 (4.5-10.0)
[2022-11-21 12:01] LABS: Creatinine Urine 49.1 mg/dL; Total Protein Urine Random 49 mg/dL
[2022-11-21 12:05] LABS: Albumin Level 4.8 g/dL (3.5-5.1); Anion Gap 10 mmol/L (8-16); Blood Urea Nitrogen 29 mg/dL (7-17); Calcium 10.1 mg/dL (8.4-10.2); Carbon Dioxide 30 mmol/L (22-30); Chloride 101 mmol/L (98-107); Estimated Glomerular Filt Rate 54; Glucose 126 mg/dL (65-110); Phosphorus 3.9 mg/dL (2.5-4.5); Potassium 4.2 mmol/L (3.4-5.0); Sodium 141 mmol/L (137-145)
[2022-11-21 12:16] LABS: Parathyroid Intact 6.3 pg/mL (7.5-53.5)
== END 2022-11-21 11:21 | disposition home or self-care (01) ==
PROVIDERS: PCP Family Medicine; Visit Provider Internal Medicine Nephrology
DX: E11.29 Type 2 diabetes mellitus with other diabetic kidney complication (principal); I10 Essential (primary) hypertension; R80.9 Proteinuria, unspecified
CPT/HCPCS: 36415; 80069; 82570; 83970; 84156; 85027

== ENCOUNTER 2023-01-27 06:49 | Outpatient (CLI) | payer MEDICARE, SELFPAY ==
[2023-01-27 07:49] LABS: Alanine Aminotransferase 22 U/L (6-35); Albumin Level 4.3 g/dL (3.5-5.1); Alkaline Phosphatase 67 U/L (38-126); Anion Gap 6 mmol/L (8-16); Aspartate Amino Transferase 27 U/L (14-36); Bilirubin,Total 0.6 mg/dL (0.2-1.3); Blood Urea Nitrogen 35 mg/dL (7-17); Carbon Dioxide 33 mmol/L (22-30); Chloride 102 mmol/L (98-107); Cholesterol 153 mg/dL (0-200); Estimated Glomerular Filt Rate 31; Glucose 151 mg/dL (65-110); HDL Direct 32 mg/dL; Phosphorus 4.1 mg/dL (2.5-4.5); Potassium 4.4 mmol/L (3.4-5.0); Sodium 141 mmol/L (137-145); Triglycerides 283 mg/dL (<150)
[2023-01-27 08:00] LABS: LDL Cholesterol Direct 69 mg/dL
[2023-01-27 08:17] LABS: Thyroid Stimulating Hormone 0.095 uIU/mL (0.465-4.680)
[2023-01-27 08:51] LABS: Hemoglobin A1C 7.8 % (<5.7)
== END 2023-01-27 06:50 | disposition home or self-care (01) ==
PROVIDERS: PCP Nurse Practitioner; Visit Provider Nurse Practitioner
DX: E78.5 Hyperlipidemia, unspecified (principal); E11.9 Type 2 diabetes mellitus without complications; E03.9 Hypothyroidism, unspecified; E55.9 Vitamin D deficiency, unspecified
CPT/HCPCS: 36415; 80053; 80061; 82306; 83036; 84100; 84443

== ENCOUNTER 2023-01-30 07:25 | Outpatient (CLI) | payer MEDICARE, SELFPAY ==
[2023-01-30 08:17] LABS: Basophils Percent Auto 0.5 % (0.2-1.2); Eosinophils Absolute Auto 0.1 K/mm3 (0-0.3); Eosinophils Percent Auto 1.4 % (0-4.4); Hematocrit 43.1 % (37.0-47.0); Hemoglobin 13.9 g/dL (12.0-15.0); Immature Granulocyte Absolute 0.06 K/mm3 (0.00-0.031); Immature Granulocyte Percent A 0.8 % (0-0.5); Lymphocytes Absolute Auto 1.73 K/mm3 (0.9-3.2); Lymphocytes Percent Auto 21.9 % (18.3-44.2); Mean Corpuscular HGB Conc 32.3 g/dl (32-36); Mean Corpuscular Hemoglobin 29.6 pg (26-34); Mean Corpuscular Volume 91.7 fl (80-100); Mean Platelet Volume 10.4 fl (7.4-10.4); Monocytes Absolute Auto 0.7 K/mm3 (0.1-0.6); Neutrophils Absolute Auto 5.3 K/mm3 (1.3-6.7); Neutrophils Percent Auto 66.4 % (45.5-73.1); Platelet Count Result 186 k/mm3 (150-375); Red Cell Distribution Width 13.5 % (11.5-14.5); White Blood Count 7.9 K/mm3 (4.5-10.0)
[2023-01-30 08:27] LABS: Alanine Aminotransferase 21 U/L (6-35); Albumin Level 4.3 g/dL (3.5-5.1); Alkaline Phosphatase 68 U/L (38-126); Anion Gap 9 mmol/L (8-16); Aspartate Amino Transferase 28 U/L (14-36); Bilirubin,Total 0.7 mg/dL (0.2-1.3); Blood Urea Nitrogen 30 mg/dL (7-17); Calcium 10.3 mg/dL (8.4-10.2); Carbon Dioxide 30 mmol/L (22-30); Chloride 101 mmol/L (98-107); Estimated Glomerular Filt Rate 48; Glucose 141 mg/dL (65-110); Potassium 3.9 mmol/L (3.4-5.0); Sodium 140 mmol/L (137-145)
[2023-01-30 08:37] LABS: Immunoglobulin A 292 mg/dL (70-400); Immunoglobulin G 1129 mg/dL (700-1600); Immunoglobulin M 64 mg/dL (40-230)
[2023-02-02 11:59] LABS: Albumin 4.1 g/dL (3.8-4.8); Alpha 1 Globulin 0.3 g/dL (0.2-0.3); Alpha 2 Globulin 1.3 g/dL (0.5-0.9); Beta 1 Globulin 0.5 g/dL (0.4-0.6); Gamma Globulin 1.2 g/dL (0.8-1.7); Protein, Total 7.8 g/dL (6.1-8.1)
[2023-02-10 14:42] LABS: Kappa\\Lambda Light Chains 1.13
== END 2023-01-30 07:26 | disposition home or self-care (01) ==
LOC: ANHLAB 07:29
PROVIDERS: PCP Nurse Practitioner; Visit Provider Internal Medicine Hematology & Oncology
DX: D47.2 Monoclonal gammopathy (principal)
CPT/HCPCS: 36415; 80053; 82784; 83883; 84155; 84165; 85025

== ENCOUNTER 2023-05-29 10:48 | Outpatient (CLI) | payer MEDICARE, SELFPAY ==
[2023-05-29 11:35] LABS: Hematocrit 41.3 % (37.0-47.0); Hemoglobin 13.3 g/dL (12.0-15.0); Mean Corpuscular HGB Conc 32.2 g/dl (32-36); Mean Corpuscular Hemoglobin 29.4 pg (26-34); Mean Corpuscular Volume 91.2 fl (80-100); Mean Platelet Volume 10.3 fl (7.4-10.4); Platelet Count Result 213 k/mm3 (150-375); Red Blood Count 4.53 M/mm3 (4.2-5.4); Red Cell Distribution Width 13.5 % (11.5-14.5)
[2023-05-29 11:47] LABS: Albumin Level 4.3 g/dL (3.5-5.1); Anion Gap 11 mmol/L (8-16); Blood Urea Nitrogen 20 mg/dL (7-17); Calcium 9.7 mg/dL (8.4-10.2); Carbon Dioxide 27 mmol/L (22-30); Chloride 106 mmol/L (98-107); Estimated Glomerular Filt Rate 54; Glucose 176 mg/dL (65-110); Phosphorus 2.9 mg/dL (2.5-4.5); Potassium 3.5 mmol/L (3.4-5.0); Sodium 144 mmol/L (137-145)
[2023-05-29 11:50] LABS: Creatinine Urine 56.1 mg/dL; Total Protein Urine Random 158 mg/dL; Ur Ttl Prot Creatinine Ratio 2.82 mg/mg (0-0.20)
[2023-05-29 12:00] LABS: Parathyroid Intact 45.4 pg/mL (7.5-53.5)
[2023-05-29 12:06] LABS: Vitamin D 25 Hydroxy 53.1 ng/mL
== END 2023-05-29 10:49 | disposition home or self-care (01) ==
PROVIDERS: PCP Nurse Practitioner; Visit Provider Internal Medicine Nephrology
DX: R79.89 Other specified abnormal findings of blood chemistry (principal); N18.31 Chronic kidney disease, stage 3a; E11.9 Type 2 diabetes mellitus without complications
CPT/HCPCS: 36415; 80069; 82306; 82570; 83970; 84156; 85027

== ENCOUNTER 2023-08-08 07:26 | Outpatient (CLI) | payer MEDICARE, SELFPAY ==
[2023-08-08 08:14] LABS: Alanine Aminotransferase 16 U/L (6-35); Albumin Level 4.1 g/dL (3.5-5.1); Alkaline Phosphatase 65 U/L (38-126); Anion Gap 8 mmol/L (8-16); Aspartate Amino Transferase 27 U/L (14-36); Bilirubin,Total 0.8 mg/dL (0.2-1.3); Blood Urea Nitrogen 30 mg/dL (7-17); Calcium 9.9 mg/dL (8.4-10.2); Carbon Dioxide 29 mmol/L (22-30); Chloride 103 mmol/L (98-107); Cholesterol 147 mg/dL (0-200); Estimated Glomerular Filt Rate 54; Glucose 142 mg/dL (65-110); HDL Direct 28 mg/dL; Potassium 4.5 mmol/L (3.4-5.0); Sodium 140 mmol/L (137-145); Triglycerides 263 mg/dL (<150)
[2023-08-08 08:16] LABS: Hemoglobin A1C 7.9 % (<5.7)
[2023-08-08 08:26] LABS: LDL Cholesterol Direct 74 mg/dL
[2023-08-08 08:32] LABS: Free T4 Free Thyroxine 1.45 ng/mL (0.78-2.19)
[2023-08-08 08:43] LABS: Thyroid Stimulating Hormone < 0.015 uIU/mL (0.465-4.680)
== END 2023-08-08 07:27 | disposition home or self-care (01) ==
LOC: ANHLAB 07:28
PROVIDERS: PCP Nurse Practitioner; Visit Provider Nurse Practitioner
DX: E78.5 Hyperlipidemia, unspecified (principal); E11.9 Type 2 diabetes mellitus without complications; E03.9 Hypothyroidism, unspecified
CPT/HCPCS: 36415; 80053; 80061; 83036; 84439; 84443

== ENCOUNTER 2023-09-25 08:19 | Outpatient (CLI) | payer MEDICARE, SELFPAY ==
[2023-09-25 09:09] LABS: Hematocrit 44.6 % (37.0-47.0); Hemoglobin 14.3 g/dL (12.0-15.0); Mean Corpuscular HGB Conc 32.1 g/dl (32-36); Mean Corpuscular Hemoglobin 29.1 pg (26-34); Mean Corpuscular Volume 90.7 fl (80-100); Mean Platelet Volume 10.3 fl (7.4-10.4); Platelet Count Result 204 k/mm3 (150-375); Red Blood Count 4.92 M/mm3 (4.2-5.4); White Blood Count 7.7 K/mm3 (4.5-10.0)
[2023-09-25 09:26] LABS: Albumin Level 4.5 g/dL (3.5-5.1); Anion Gap 7 mmol/L (8-16); Blood Urea Nitrogen 24 mg/dL (7-17); Calcium 10.3 mg/dL (8.4-10.2); Carbon Dioxide 26 mmol/L (22-30); Chloride 105 mmol/L (98-107); Estimated Glomerular Filt Rate 54; Glucose 246 mg/dL (65-110); Phosphorus 3.3 mg/dL (2.5-4.5); Potassium 4.1 mmol/L (3.4-5.0); Sodium 138 mmol/L (137-145)
[2023-09-25 09:31] LABS: Parathyroid Intact 38.4 pg/mL (7.5-53.5)
[2023-09-25 09:39] LABS: Creatinine Urine 33.6 mg/dL; Total Protein Urine Random 69 mg/dL; Ur Ttl Prot Creatinine Ratio 2.05 mg/mg (0-0.20)
[2023-09-25 09:49] LABS: Total Protein Urine Random 78 mg/dL
[2023-09-25 09:49] LABS: Thyroid Stimulating Hormone 0.642 uIU/mL (0.465-4.680)
[2023-09-25 09:51] LABS: Total Protein Urine 24 Hr 1872 mg/24hr (28-141); Total Volume 24 Hour Urine 2400 ml; Urea Nitrogen 24 Hour Urine 10.2 G/DAY (12-20)
[2023-09-25 10:15] LABS: Free T4 Free Thyroxine 1.41 ng/mL (0.78-2.19)
== END 2023-09-25 08:20 | disposition home or self-care (01) ==
PROVIDERS: PCP Nurse Practitioner; Visit Provider Internal Medicine Nephrology
DX: E03.9 Hypothyroidism, unspecified (principal); E11.9 Type 2 diabetes mellitus without complications; I12.9 Hypertensive chronic kidney disease with stage 1 through stage 4 chronic kidney disease, or unspecified chronic kidney disease; N18.31 Chronic kidney disease, stage 3a; Z79.4 Long term (current) use of insulin
CPT/HCPCS: 36415; 80069; 81050; 82570; 83970; 84156; 84439; 84443; 84540; 85027

== ENCOUNTER 2023-10-03 01:29 | Day surgery (SDC) | payer MEDICARE, SELFPAY ==
[2023-09-22 14:07] VITALS: BMI 38.7
[2023-10-03 06:58] VITALS: BP 149/55; PULSE 60; RESP 20; TEMP 36.4; O2SAT 99
[2023-10-03] MEDS: LACTATED RINGERS 1,000 ML 150 ML IV CONT (07:16)
[2023-10-03 07:17] LABS: Glucose Point of Care 103 mg/dl (65-105)
--- NOTE | 2023-10-03 07:41 | WPDANESEPPF ---
Anes - Initial Pre Proc Eval Procedure: Operation Date: 10/03/23 08:00 Proposed Procedures p Colonoscopy - Marv Braxton MD Date/Time: 10/03/23 07:41 Surgeon: Marv Braxton MD Pre Op Diagnosis: hx of colon polyps Patient Data Age: 77 Gender: F Height: 1.61 m Weight: 99.2 kg Last Vital Signs Temp 97.6 F 10/03/23 06:58 Pulse 60 10/03/23 06:58 Resp 20 10/03/23 06:58 BP 149/55 H 10/03/23 06:58 Pulse Ox 99 10/03/23 06:58 O2 Del Method Room Air 10/03/23 06:58 Allergies Allergy/AdvReac Type Severity Reaction Status Date / Time No Known Allergies Allergy Mild Verified 10/03/23 06:52 Home Medications Medication Instructions Recorded Confirmed Type pen needle, diabetic 32 gauge x #100 ea 06/25/20 08/15/23 Rx 5/16 (Comfort EZ Pen [place]) blood sugar diagnostic (Prodigy No See Rx Instructions .Route 11/02/22 08/15/23 Rx Coding strips) .COMPLEX #200 strips pen needle, diabetic 32 gauge x #100 ea 11/02/22 08/15/23 Rx 1/6 (NovoFine Plus) calcium carbonate 600 mg calcium 600 mg PO DAILY 02/03/23 09/22/23 History (1,500 mg) tablet (Calcium) cholecalciferol (vitamin D3) 125 125 mcg PO DAILY 02/03/23 09/22/23 History mcg (5,000 unit) capsule latanoprost 0.005 % eye drops 1 drp EACH EYE DAILY 02/03/23 09/22/23 History finerenone 10 mg tablet (Kerendia) 10 mg PO DAILY #90 tabs 06/13/23 09/22/23 Rx lisinopril 30 mg tablet 30 mg PO BID #180 tabs 06/13/23 10/03/23 Rx dapagliflozin 10 mg-saxagliptin 5 1 tablet PO DAILY #90 tabs 06/26/23 09/22/23 Rx mg tablet (Qtern) levothyroxine 137 mcg tablet 137 mcg PO DAILY #90 tabs 07/20/23 10/03/23 Rx (Synthroid) omeprazole 40 mg capsule,delayed 40 mg PO DAILY #90 caps 07/20/23 09/22/23 Rx release verapamil 240 mg 24 hr 240 mg PO DAILY #90 caps 07/20/23 10/03/23 Rx capsule,extended release rosuvastatin 40 mg tablet (Crestor) 40 mg PO DAILY #90 tabs 09/04/23 09/22/23 Rx insulin glargine 100 unit/mL (3 50 unit (0.5 mL) subcut DAILY #45 09/13/23 09/22/23 Rx mL) subcutaneous pen (Lantus mL Solostar U-100 Insulin) azelastine 137 mcg (0.1 %) nasal 137 mcg intranasal Q12H PRN 09/22/23 09/22/23 History spray aerosol Congestion Laboratory Tests 10/03/23 07:06 POC Capillary Glucose 103 mg/dl (65-105) Patient hx anesthesia problems: none Family hx anesthesia problems: none Results Review: All pre-operative results and documents have been reviewed as part of the pre-operative evaluation. ON LICENSE OF [facility] Past Medical History Medical History (Updated 08/15/23 @ 09:39 by Jake Granger APRN) CKD (chronic kidney disease) stage 3, GFR 30-59 ml/min Family History Family History Mother Family history of malignant neoplasm Social History Social History Smoking status: Never smoker Second hand tobacco smoke exposure: No Alcohol intake: current Substance use: never Substance use type: does not use Lack of Transportation: No Lack of Food: Never True Current Housing: I Have Housing Concerned About Future Housing: No Difficulty Paying Gas/Electric Bills: No Difficulty Paying for Meds: No Currently Unemployed: No Education: High School Diploma/GED Difficulty w/ Childcare or Family Care: No Living arrangements: with family Gender identity (if verbalized by the patient): Female Spiritual care concerns: No Anes - Eval Final PreProcedure Day of Procedure 10/03/23 07:41 Patient weight: normal Heart: regular rate and rhythm Lungs: clear to auscultation Airway: Mallampati scale class II Neurological: alert and oriented Last oral intake: >/= 8 hours ASA classification: III Emergent: no Anesthetic plan: proceed Anesthesia type and monitoring: general GIVS and standard monitoring Results Review: All pre-operative results and documents have bee
--- NOTE | 2023-10-03 07:52 | PM.HPGS ---
History of Present Illness History of Present Illness Consent: Risks, benefits, and alternatives have been discussed and questions answered. Patient agrees to proceed with procedure. Chief complaint: hx of colon polyps Narrative: Gladys Deluna is a 77 year old female with colon polyp 5 years ago Review of Systems Review of Systems: All systems reviewed & are unremarkable except as noted in HPI and below PMFSH Past Medical History Medical History (Updated 08/15/23 @ 09:39 by Jake Granger APRN) CKD (chronic kidney disease) stage 3, GFR 30-59 ml/min Family History Family History Mother Family history of malignant neoplasm Social History Social History Smoking status: Never smoker Second hand tobacco smoke exposure: No Alcohol intake: current Substance use: never Substance use type: does not use Lack of Transportation: No Lack of Food: Never True Current Housing: I Have Housing Concerned About Future Housing: No Difficulty Paying Gas/Electric Bills: No Difficulty Paying for Meds: No Currently Unemployed: No Education: High School Diploma/GED Difficulty w/ Childcare or Family Care: No Living arrangements: with family Gender identity (if verbalized by the patient): Female Spiritual care concerns: No Meds Home Medications and Allergies Home Medications Medication Instructions Recorded Confirmed Type pen needle, diabetic 32 gauge x #100 ea 06/25/20 08/15/23 Rx 5/16 (Comfort EZ Pen [place]) blood sugar diagnostic (Prodigy No See Rx Instructions .Route 11/02/22 08/15/23 Rx Coding strips) .COMPLEX #200 strips pen needle, diabetic 32 gauge x #100 ea 11/02/22 08/15/23 Rx 1/6 (NovoFine Plus) calcium carbonate 600 mg calcium 600 mg PO DAILY 02/03/23 09/22/23 History (1,500 mg) tablet (Calcium) cholecalciferol (vitamin D3) 125 125 mcg PO DAILY 02/03/23 09/22/23 History mcg (5,000 unit) capsule latanoprost 0.005 % eye drops 1 drp EACH EYE DAILY 02/03/23 09/22/23 History finerenone 10 mg tablet (Kerendia) 10 mg PO DAILY #90 tabs 06/13/23 09/22/23 Rx lisinopril 30 mg tablet 30 mg PO BID #180 tabs 06/13/23 10/03/23 Rx dapagliflozin 10 mg-saxagliptin 5 1 tablet PO DAILY #90 tabs 06/26/23 09/22/23 Rx mg tablet (Qtern) levothyroxine 137 mcg tablet 137 mcg PO DAILY #90 tabs 07/20/23 10/03/23 Rx (Synthroid) omeprazole 40 mg capsule,delayed 40 mg PO DAILY #90 caps 07/20/23 09/22/23 Rx release verapamil 240 mg 24 hr 240 mg PO DAILY #90 caps 07/20/23 10/03/23 Rx capsule,extended release rosuvastatin 40 mg tablet (Crestor) 40 mg PO DAILY #90 tabs 09/04/23 09/22/23 Rx insulin glargine 100 unit/mL (3 50 unit (0.5 mL) subcut DAILY #45 09/13/23 09/22/23 Rx mL) subcutaneous pen (Lantus mL Solostar U-100 Insulin) azelastine 137 mcg (0.1 %) nasal 137 mcg intranasal Q12H PRN 09/22/23 09/22/23 History spray aerosol Congestion Allergies Allergy/AdvReac Type Severity Reaction Status Date / Time No Known Allergies Allergy Mild Verified 10/03/23 06:52 Vital Signs Vital Signs - 24 hr 10/03/23 06:58 Temperature 97.6 F Pulse Rate 60 Respiratory Rate 20 Blood Pressure 149/55 H Pulse Oximetry 99 Oxygen Delivery Room Air Exam Const: General: comfortable and no acute distress HENMT: Face/Nose/Sinus: Normal nares present Eyes: General: appearance normal, both eyes and all related structures Neck: Neck: no JVD Resp: Auscultation: clear to auscultation bilaterally Cardio: Rate: regular rate Rhythm: regular rhythm GI: Inspection: non-distended GI Palp: Yes Soft to palpation Skin: General skin exam: normal color Neuro: General: gait normal Speech: normal speech Extrem: General: normal to inspection Psych: Mental Status: mental status grossly normal Assessment and Plan Assessment and plan (1) History of colon polyps:
[2023-10-03 08:22] VITALS: BP 104/47; PULSE 58; RESP 22; O2SAT 99
[2023-10-03 08:32] VITALS: BP 125/39; PULSE 54; RESP 17; O2SAT 100
[2023-10-03 08:42] VITALS: BP 129/42; PULSE 56; RESP 21; O2SAT 100
[2023-10-03 08:56] LABS: Glucose Point of Care 114 mg/dl (65-105)
== END 2023-10-03 08:49 | disposition home or self-care (01) ==
PROVIDERS: PCP Nurse Practitioner; Visit Provider Internal Medicine Gastroenterology
PROC: 0DJD8ZZ Inspection of Lower Intestinal Tract, Via Natural or Artificial Opening Endoscopic (ICD-10-PCS; CPT 45378; principal; 2023-10-03 08:00)
DX: Z12.11 Encounter for screening for malignant neoplasm of colon (principal); C18.6 Malignant neoplasm of descending colon; D12.3 Benign neoplasm of transverse colon; K63.5 Polyp of colon; K64.8 Other hemorrhoids; K57.30 Diverticulosis of large intestine without perforation or abscess without bleeding; N18.30 Chronic kidney disease, stage 3 unspecified; Z79.4 Long term (current) use of insulin; Z80.9 Family history of malignant neoplasm, unspecified
CPT/HCPCS: 45385; 82948; 88305; 88342; J1596; J2704; J7120

== ENCOUNTER 2024-01-08 00:06 | Day surgery (SDC) | payer MEDICARE, SELFPAY ==
[2024-01-08 06:42] VITALS: BP 145/42; PULSE 70; RESP 18; TEMP 36; O2SAT 97; BMI 38.5
--- NOTE | 2024-01-08 06:47 | WPDANESEPPF ---
Anes - Initial Pre Proc Eval Procedure: Operation Date: 01/08/24 08:00 Proposed Procedures p Flexible Sigmoidoscopy - Marv Braxton MD Date/Time: 01/08/24 06:47 Surgeon: Marv Braxton MD Pre Op Diagnosis: Malignant neoplasm of colon unspecified Patient Data Age: 78 Gender: F Height: 1.6 m Weight: 98.6 kg Last Vital Signs Temp 96.8 F L 01/08/24 06:42 Pulse 70 01/08/24 06:42 Resp 18 01/08/24 06:42 BP 145/42 H 01/08/24 06:42 Pulse Ox 97 01/08/24 06:42 O2 Del Method Room Air 01/08/24 06:42 Allergies Allergy/AdvReac Type Severity Reaction Status Date / Time No Known Allergies Allergy Mild Verified 01/08/24 06:40 Home Medications Medication Instructions Recorded Confirmed Type pen needle, diabetic 32 gauge x #100 ea 06/25/20 01/08/24 Rx 5/16 (Comfort EZ Pen [place]) blood sugar diagnostic (Prodigy No See Rx Instructions .Route 11/02/22 01/08/24 Rx Coding strips) .COMPLEX #200 strips pen needle, diabetic 32 gauge x #100 ea 11/02/22 01/08/24 Rx 1/6 (NovoFine Plus) calcium carbonate (Calcium 600) 600 mg PO DAILY 02/03/23 01/08/24 History cholecalciferol (vitamin D3) 125 125 mcg PO DAILY 02/03/23 01/08/24 History mcg (5,000 unit) capsule latanoprost 0.005 % eye drops 1 drp EACH EYE DAILY 02/03/23 01/08/24 History finerenone 10 mg tablet (Kerendia) 10 mg PO DAILY #90 tabs 06/13/23 01/08/24 Rx lisinopril 30 mg tablet 30 mg PO BID #180 tabs 06/13/23 01/08/24 Rx rosuvastatin 40 mg tablet (Crestor) 40 mg PO DAILY #90 tabs 09/04/23 01/08/24 Rx insulin glargine 100 unit/mL (3 50 unit (0.5 mL) subcut DAILY #45 09/13/23 01/08/24 Rx mL) subcutaneous pen (Lantus mL Solostar U-100 Insulin) azelastine 137 mcg (0.1 %) nasal 137 mcg intranasal Q12H PRN 09/22/23 01/08/24 History spray aerosol Congestion indapamide 1.25 mg tablet 1.25 mg PO DAILY #90 tabs 10/10/23 01/08/24 Rx levothyroxine 137 mcg tablet 137 mcg PO DAILY #90 tabs 12/18/23 01/08/24 Rx (Synthroid) omeprazole 40 mg capsule,delayed 40 mg PO DAILY #90 caps 12/18/23 01/08/24 Rx release verapamil 240 mg 24 hr 240 mg PO DAILY #90 caps 12/18/23 01/08/24 Rx capsule,extended release dapagliflozin 10 mg-saxagliptin 5 See Rx Instructions .Route 01/01/24 01/08/24 Rx mg tablet (Qtern) .COMPLEX #90 tabs Patient hx anesthesia problems: none Family hx anesthesia problems: none Results Review: All pre-operative results and documents have been reviewed as part of the pre-operative evaluation. [facility] Past Medical History Medical History Adult hypothyroidism Chronic kidney disease, stage 3a CKD (chronic kidney disease) stage 3, GFR 30-59 ml/min Colon cancer DM w/o complication type II Essential hypertension GERD (gastroesophageal reflux disease) Other and unspecified hyperlipidemia Surgical History Surgical History H/O carpal tunnel repair H/O: hysterectomy History of cholecystectomy History of knee surgery Family History Family History Mother Family history of malignant neoplasm Other Diabetes mellitus Heart disease Hypertension Social History Social History Smoking status: Never smoker Second hand tobacco smoke exposure: No Alcohol intake: current Substance use: never Substance use type: does not use Do You Feel Safe in your Home?: Yes Lack of Transportation: No Lack of Food: Never True Current Housing: I Have Housing Concerned About Future Housing: No Difficulty Paying Gas/Electric Bills: No Difficulty Paying for Meds: No Currently Unemployed: No Education: High School Diploma/GED Difficulty w/ Childcare or Family Care: No Living arrangements: with family Occupation/Education: retired Gender ident
[2024-01-08] MEDS: LACTATED RINGERS 1,000 ML 150 ML IV CONT (06:54)
[2024-01-08 07:20] LABS: Glucose Point of Care 130 mg/dl (65-105)
--- NOTE | 2024-01-08 07:34 | PM.HPGS ---
History of Present Illness History of Present Illness Consent: Risks, benefits, and alternatives have been discussed and questions answered. Patient agrees to proceed with procedure. Chief complaint: Malignant neoplasm of colon unspecified Narrative: Gladys Deluna is a 78 year old female here for sigmoidoscopy, 09/2023 had 8mm polyp removed with hot snare, path showed adenocarcinoma with negative margin, then evaluated by surgery, patient preferred repeat endoscopy Review of Systems Review of Systems: All systems reviewed & are unremarkable except as noted in HPI and below PMFSH Past Medical History Medical History Adult hypothyroidism Chronic kidney disease, stage 3a CKD (chronic kidney disease) stage 3, GFR 30-59 ml/min Colon cancer DM w/o complication type II Essential hypertension GERD (gastroesophageal reflux disease) Other and unspecified hyperlipidemia Surgical History Surgical History H/O carpal tunnel repair H/O: hysterectomy History of cholecystectomy History of knee surgery Family History Family History Mother Family history of malignant neoplasm Other Diabetes mellitus Heart disease Hypertension Social History Social History Smoking status: Never smoker Second hand tobacco smoke exposure: No Alcohol intake: current Substance use: never Substance use type: does not use Do You Feel Safe in your Home?: Yes Lack of Transportation: No Lack of Food: Never True Current Housing: I Have Housing Concerned About Future Housing: No Difficulty Paying Gas/Electric Bills: No Difficulty Paying for Meds: No Currently Unemployed: No Education: High School Diploma/GED Difficulty w/ Childcare or Family Care: No Living arrangements: with family Occupation/Education: retired Gender identity (if verbalized by the patient): Female Spiritual care concerns: No Meds Home Medications and Allergies Home Medications Medication Instructions Recorded Confirmed Type pen needle, diabetic 32 gauge x #100 ea 06/25/20 01/08/24 Rx 5/16 (Comfort EZ Pen [place]) blood sugar diagnostic (Prodigy No See Rx Instructions .Route 11/02/22 01/08/24 Rx Coding strips) .COMPLEX #200 strips pen needle, diabetic 32 gauge x #100 ea 11/02/22 01/08/24 Rx / (NovoFine Plus) calcium carbonate (Calcium 600) 600 mg PO DAILY 02/03/23 01/08/24 History cholecalciferol (vitamin D3) 125 125 mcg PO DAILY 02/03/23 01/08/24 History mcg (5,000 unit) capsule latanoprost 0.005 % eye drops 1 drp EACH EYE DAILY 02/03/23 01/08/24 History finerenone 10 mg tablet (Kerendia) 10 mg PO DAILY #90 tabs 06/13/23 01/08/24 Rx lisinopril 30 mg tablet 30 mg PO BID #180 tabs 06/13/23 01/08/24 Rx rosuvastatin 40 mg tablet (Crestor) 40 mg PO DAILY #90 tabs 09/04/23 01/08/24 Rx insulin glargine 100 unit/mL (3 50 unit (0.5 mL) subcut DAILY #45 09/13/23 01/08/24 Rx mL) subcutaneous pen (Lantus mL Solostar U-100 Insulin) azelastine 137 mcg (0.1 %) nasal 137 mcg intranasal Q12H PRN 09/22/23 01/08/24 History spray aerosol Congestion indapamide 1.25 mg tablet 1.25 mg PO DAILY #90 tabs 10/10/23 01/08/24 Rx levothyroxine 137 mcg tablet 137 mcg PO DAILY #90 tabs 12/18/23 01/08/24 Rx (Synthroid) omeprazole 40 mg capsule,delayed 40 mg PO DAILY #90 caps 12/18/23 01/08/24 Rx release verapamil 240 mg 24 hr 240 mg PO DAILY #90 caps 12/18/23 01/08/24 Rx capsule,extended release dapagliflozin 10 mg-saxagliptin 5 See Rx Instructions .Route 01/01/24 01/08/24 Rx mg tablet (Qtern) .COMPLEX #90 tabs Allergies Allergy/AdvReac Type Severity Reaction Status Date / Time No Known Allergies Allergy Mild Verified 01/08/24 06:40 Vital Signs Vital Signs - 24 hr 01/08/24 06:42
[2024-01-08 07:53] VITALS: BP 110/43; PULSE 61; RESP 20; O2SAT 96
[2024-01-08 08:03] VITALS: BP 113/49; PULSE 60; RESP 16; O2SAT 96
[2024-01-08 08:13] VITALS: BP 122/45; PULSE 59; RESP 18; O2SAT 96
[2024-01-08 08:15] LABS: Glucose Point of Care 120 mg/dl (65-105)
== END 2024-01-08 08:32 | disposition home or self-care (01) ==
PROVIDERS: PCP Nurse Practitioner; Visit Provider Internal Medicine Gastroenterology
PROC: 0DJD8ZZ Inspection of Lower Intestinal Tract, Via Natural or Artificial Opening Endoscopic (ICD-10-PCS; CPT 45330; principal; 2024-01-08 08:00)
DX: Z08 Encounter for follow-up examination after completed treatment for malignant neoplasm (principal); D12.3 Benign neoplasm of transverse colon; K63.5 Polyp of colon; K62.1 Rectal polyp; K57.30 Diverticulosis of large intestine without perforation or abscess without bleeding; K64.8 Other hemorrhoids; Z85.038 Personal history of other malignant neoplasm of large intestine; I12.9 Hypertensive chronic kidney disease with stage 1 through stage 4 chronic kidney disease, or unspecified chronic kidney disease; E11.22 Type 2 diabetes mellitus with diabetic chronic kidney disease; N18.31 Chronic kidney disease, stage 3a; E03.9 Hypothyroidism, unspecified; E78.49 Other hyperlipidemia; K21.9 Gastro-esophageal reflux disease without esophagitis; Z79.4 Long term (current) use of insulin; Z79.84 Long term (current) use of oral hypoglycemic drugs; E66.9 Obesity, unspecified; Z68.38 Body mass index [BMI] 38.0-38.9, adult
CPT/HCPCS: 45385; 82948; 88305; J2704; J7120

== ENCOUNTER 2024-01-30 15:27 | Outpatient (CLI) | payer MEDICARE, SELFPAY ==
--- NOTE | ~2024-01-30 | MM_ITS ---
EXAMINATION: MM screening [facility] BI w madhavi HISTORY: Screening TECHNIQUE: Craniocaudal and mediolateral oblique 3-D tomosynthesis images were obtained and synthetic 2-D images were generated. CAD analysis was submitted and interpreted. COMPARISON: Comparison to multiple prior studies sequentially, with oldest reviewed study dated 04/17. BREAST PARENCHYMAL COMPOSITION: Not dense: There are scattered areas of fibroglandular density. FINDINGS: There is no evidence of suspicious mass, calcification, or architectural distortion to sugg est malignancy in either breast. There has been no suspicious interval change. IMPRESSION: 1. No mammographic evidence of malignancy. 2. Recommend routine screening mammography in one year. BI-RADS Category 1: Negative Reviewed, dictated and finalized at location B.
== END 2024-01-30 15:28 | disposition home or self-care (01) ==
LOC: ANHIMG 15:28
PROVIDERS: PCP Nurse Practitioner; Visit Provider Nurse Practitioner
DX: Z12.31 Encounter for screening mammogram for malignant neoplasm of breast (principal)
CPT/HCPCS: 77063; 77067

== ENCOUNTER 2024-02-13 13:14 | Outpatient (CLI) | payer MEDICARE, SELFPAY ==
[2024-02-13 13:55] LABS: Basophils Percent Auto 0.4 % (0.2-1.2); Eosinophils Absolute Auto 0.1 K/mm3 (0-0.3); Eosinophils Percent Auto 1.2 % (0-4.4); Hematocrit 42.2 % (37.0-47.0); Hemoglobin 13.7 g/dL (12.0-15.0); Immature Granulocyte Absolute 0.05 K/mm3 (0.00-0.031); Immature Granulocyte Percent A 0.5 % (0-0.5); Lymphocytes Absolute Auto 2.02 K/mm3 (0.9-3.2); Mean Corpuscular HGB Conc 32.5 g/dl (32-36); Mean Corpuscular Hemoglobin 30.2 pg (26-34); Mean Corpuscular Volume 93.2 fl (80-100); Mean Platelet Volume 10.6 fl (7.4-10.4); Monocytes Absolute Auto 0.7 K/mm3 (0.1-0.6); Monocytes Percent Auto 8.1 % (2.6-8.5); Neutrophils Absolute Auto 6.2 K/mm3 (1.3-6.7); Neutrophils Percent Auto 67.8 % (45.5-73.1); Platelet Count Result 198 k/mm3 (150-375); Red Blood Count 4.53 M/mm3 (4.2-5.4); Red Cell Distribution Width 13.3 % (11.5-14.5); White Blood Count 9.2 K/mm3 (4.5-10.0)
[2024-02-13 14:12] LABS: Alanine Aminotransferase 17 U/L (6-35); Albumin Level 4.4 g/dL (3.5-5.1); Alkaline Phosphatase 66 U/L (38-126); Anion Gap 11 mmol/L (4-12); Aspartate Amino Transferase 27 U/L (14-36); Bilirubin,Total 0.6 mg/dL (0.2-1.3); Blood Urea Nitrogen 33 mg/dL (7-17); Calcium 9.8 mg/dL (8.4-10.2); Carbon Dioxide 30 mmol/L (22-30); Chloride 100 mmol/L (98-107); Estimated Glomerular Filt Rate 48; Glucose 151 mg/dL (65-110); Potassium 4.1 mmol/L (3.4-5.0); Sodium 141 mmol/L (137-145)
[2024-02-13 14:24] LABS: Immunoglobulin A 274 mg/dL (70-400); Immunoglobulin G 1157 mg/dL (700-1600); Immunoglobulin M 67 mg/dL (40-230)
[2024-02-14 11:22] LABS: Lambda Light Chain 29.2 mg/L (5.7-26.3)
[2024-02-14 11:58] LABS: Protein, Total 7.7 g/dL (6.1-8.1)
[2024-02-15 08:27] LABS: Alpha 1 Globulin 0.3 g/dL (0.2-0.3); Alpha 2 Globulin 1.2 g/dL (0.5-0.9); Beta 1 Globulin 0.5 g/dL (0.4-0.6); Gamma Globulin 1.2 g/dL (0.8-1.7)
== END 2024-02-13 13:15 | disposition home or self-care (01) ==
PROVIDERS: PCP Nurse Practitioner; Visit Provider Internal Medicine Hematology & Oncology
DX: D47.2 Monoclonal gammopathy (principal)
CPT/HCPCS: 36415; 80053; 82784; 83883; 84155; 84165; 85025

== ENCOUNTER 2024-02-26 07:26 | Outpatient (CLI) | payer MEDICARE, SELFPAY ==
[2024-02-26 08:00] LABS: Alanine Aminotransferase 15 U/L (6-35); Albumin Level 4.1 g/dL (3.5-5.1); Alkaline Phosphatase 66 U/L (38-126); Anion Gap 10 mmol/L (4-12); Aspartate Amino Transferase 24 U/L (14-36); Bilirubin,Total 0.6 mg/dL (0.2-1.3); Blood Urea Nitrogen 30 mg/dL (7-17); Calcium 9.9 mg/dL (8.4-10.2); Carbon Dioxide 27 mmol/L (22-30); Chloride 103 mmol/L (98-107); Cholesterol 134 mg/dL (0-200); Estimated Glomerular Filt Rate 54; Glucose 142 mg/dL (65-110); HDL Direct 30 mg/dL; Hemoglobin A1C 8.1 % (<5.7); Potassium 4.1 mmol/L (3.4-5.0); Sodium 140 mmol/L (137-145); Triglycerides 257 mg/dL (<150)
[2024-02-26 08:11] LABS: LDL Cholesterol Direct 54 mg/dL
[2024-02-26 08:31] LABS: Thyroid Stimulating Hormone 0.942 uIU/mL (0.465-4.680)
== END 2024-02-26 07:27 | disposition home or self-care (01) ==
LOC: ANHLAB 07:29
PROVIDERS: PCP Nurse Practitioner; Visit Provider Nurse Practitioner
DX: E03.9 Hypothyroidism, unspecified (principal); E11.9 Type 2 diabetes mellitus without complications; E78.5 Hyperlipidemia, unspecified
CPT/HCPCS: 36415; 80053; 80061; 83036; 84439; 84443

== ENCOUNTER 2024-04-01 13:26 | Outpatient (CLI) | payer MEDICARE, SELFPAY ==
[2024-04-01 14:09] LABS: Hematocrit 38.1 % (37.0-47.0); Hemoglobin 12.3 g/dL (12.0-15.0); Mean Corpuscular HGB Conc 32.3 g/dl (32-36); Mean Corpuscular Hemoglobin 29.9 pg (26-34); Mean Corpuscular Volume 92.5 fl (80-100); Mean Platelet Volume 10.4 fl (7.4-10.4); Platelet Count Result 196 k/mm3 (150-375); Red Blood Count 4.12 M/mm3 (4.2-5.4); Red Cell Distribution Width 13.5 % (11.5-14.5); White Blood Count 9.3 K/mm3 (4.5-10.0)
[2024-04-01 14:17] LABS: Creatinine Urine 69.3 mg/dL; Total Protein Urine Random 73 mg/dL; Ur Ttl Prot Creatinine Ratio 1.05 mg/mg (0-0.20)
[2024-04-01 14:22] LABS: Albumin Level 4.4 g/dL (3.5-5.1); Anion Gap 13 mmol/L (4-12); Blood Urea Nitrogen 44 mg/dL (7-17); Calcium 10.2 mg/dL (8.4-10.2); Carbon Dioxide 20 mmol/L (22-30); Chloride 105 mmol/L (98-107); Estimated Glomerular Filt Rate 34; Glucose 198 mg/dL (65-110); Phosphorus 3.7 mg/dL (2.5-4.5); Potassium 4.4 mmol/L (3.4-5.0); Sodium 138 mmol/L (137-145)
[2024-04-01 14:34] LABS: Parathyroid Intact 21.7 pg/mL (14.5-75.2)
== END 2024-04-01 13:27 | disposition home or self-care (01) ==
LOC: ANHLAB 13:31
PROVIDERS: PCP Nurse Practitioner; Visit Provider Internal Medicine Nephrology
DX: N18.31 Chronic kidney disease, stage 3a (principal)
CPT/HCPCS: 36415; 80069; 82306; 82570; 83970; 84156; 85027

== ENCOUNTER 2024-09-30 16:29 | Outpatient (CLI) | payer MEDICARE, SELFPAY ==
[2024-09-30 17:16] LABS: Hematocrit 42.6 % (37.0-47.0); Hemoglobin 13.7 g/dL (12.0-15.0); Mean Corpuscular HGB Conc 32.2 g/dl (32-36); Mean Corpuscular Hemoglobin 28.8 pg (26-34); Mean Corpuscular Volume 89.7 fl (80-100); Platelet Count Result 223 k/mm3 (150-375); Red Blood Count 4.75 M/mm3 (4.2-5.4); Red Cell Distribution Width 13.4 % (11.5-14.5); White Blood Count 8.8 K/mm3 (4.5-10.0)
[2024-09-30 17:23] LABS: Creatinine Urine 53.3 mg/dL; Total Protein Urine Random 76 mg/dL; Ur Ttl Prot Creatinine Ratio 1.43 mg/mg (0-0.20)
[2024-09-30 17:27] LABS: Albumin Level 4.5 g/dL (3.5-5.1); Anion Gap 11 mmol/L (4-12); Blood Urea Nitrogen 33 mg/dL (7-17); Calcium 9.9 mg/dL (8.4-10.2); Carbon Dioxide 26 mmol/L (22-30); Chloride 107 mmol/L (98-107); Estimated Glomerular Filt Rate 48; Glucose 112 mg/dL (65-110); Phosphorus 3.6 mg/dL (2.5-4.5); Potassium 3.9 mmol/L (3.4-5.0); Sodium 144 mmol/L (137-145)
[2024-09-30 17:42] LABS: Parathyroid Intact 41.4 pg/mL (14.5-75.2)
--- OUTSIDE RECORDS SUMMARY | 2024-09-30 18:47 | XMS_ITS | Clinical Summary ---
Author Organization [facility] Address [address] [place] [address] Phone Care Team Providers Care Finished Garment Inspector Name Role Phone Musa Booth MD Primary Care Provider [phone] Allergies No known active allergies Medications Medication Sig Dispensed Refills Start Date End Date Status atorvastatin (LIPITOR) 40 MG tablet 04/21/2020 Active azelastine (ASTELIN) 0.1 % nasal spray 04/22/2020 Active Qtern 10-5 MG tablet 05/18/2020 Active Prodigy No Coding Blood Gluc test strip TEST BLOOD SUGAR BID 05/25/2020 Active Lantus SoloStar 100 UNIT/ML injection 05/28/2020 Active Synthroid 137 MCG tablet 05/07/2020 Active omeprazole (PriLOSEC) [address] capsule 04/30/2020 Active verapamil ER (VERELAN) 240 MG 24 hr capsule 04/21/2020 Active Travoprost (TRAVATAN OP) Administer into affected eye(s) Active Biotin 10 MG tablet Take by mouth Ac tive Cholecalciferol (Vitamin D3) 125 MCG (5000 UT) capsule Take by mouth Active Probiotic Product (PROBIOTIC-10 PO) Take by mouth Acti ve Calcium 600-200 MG-UNIT per tablet Take 1 tablet by mouth 1 (one) time each day Active NovoFine Plus 32G X 4 MM misc 1 (one) time each day 11/26/2020 Active lisinopril (PRINIVIL) 40 MG tablet Take 40 mg by mouth 1 (one) time each day 06/23/2021 Active indapamide (LOZOL) 1.25 MG tablet Take 1 tablet (1.25 mg total) by mouth 1 (one) time each day in the morning 30 tablet 11 01/31/2022 Active Active Problems Problem Noted Date Diagnosed Date 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 07/24/2020 Type 2 diabetes mellitus wit h diabetic chronic kidney disease 06/21/2020 Other and unspecified hyperlipidemia 06/21/2020 Gastroesophageal reflux disease 06/21/2020 Essential hypertension 06/21/2020 Persistent proteinuria 06/21/2020 Hematoma of subdural space of neuraxis 6 Immunizations Name Administration Dates Next Due Fluzone High-Dose 03/24/2020 Influenza (IM) Preservative Free 04/16/2016 Influenza TIV (IM) 03/31/2021 Pneumococcal Conjugate 03/17/2018 Pneumococcal Conjugate 13-Valent 03/17/2021 Social History Tobacco Use Types Packs/Day Years Used Date Smoking Tobacco: Never Smokeless Tobacco: Never Alcohol Use Standard Drinks/Week Comments Yes 0 (1 standard drink = 0.6 oz pur e alcohol) yearly Sex and Gender Information Value Date Recorded Sex Assigned at Not on file Gender Identity Not on file Sexual Orientation Not on file Last Filed Vital Signs Vital Sign Reading Time Taken Comments Blood Pressure 144/70 01/31/2022 9:05 AM CDT Pulse 72 01/31/2022 9:05 AM CDT Temperature 36.8 C (98.3 F) 01/31/2022 9:05 AM CDT Respiratory Rate - - Oxygen Saturation - - Inhaled Oxygen Concentration - - Weight 103 kg (226 lb) 01/31/2022 9:05 AM CDT Height 160 cm (5' 3 ) 01/31/2022 9:05 AM CDT Body Mass Index 40.03 01/31/2022 9:05 AM CDT Plan of Treatment Health Maintenance Due Date Last Done Comments Pneumococcal PPSV23/PCV13 65 + Years / Low and Medium Risk (2 of 3 - PPSV23 or PCV20) 03/17/2022 03/17/2021 Influenza Vaccine (#1) 2024 03/31/2021, 2015 Care Teams Finished Garment Inspector Relationship Specialty Start Date End Date Musa Booth MD [address] [place] [address] PCP - General Family Medicine 04/29/20
--- OUTSIDE RECORDS SUMMARY | 2024-09-30 18:47 | XMS_ITS | Clinical Summary ---
Author Organization [facility] Peter verdugo Michellemil Address [address] [place] [address] Care Team Providers Care Records Coordinator Name Role Phone Chad Luque MD Primary Care Provider [phone] Allergies No known active allergies Medications calcium-vitamin D3 (Calcium 600 + D,3,) 600 mg(1,500mg) -200 unit Tablet Take 1 Tablet by mouth. Active Lactobacillus acidophilus (Probiotic) 10 billion cell Capsule Take by mouth. Activ e travoprost (TRAVATAN Z) 0.004 % solution by Ophthalmic route. Active atorvastatin (LIPITOR) 40 mg tablet 0 Active azelastine (ASTELIN) 137 mcg/actuation nasal spray 0 Active biotin 10 mg Tablet Take by mouth. Activ e blood sugar diagnostic (Prodigy No Coding) Strip TEST BLOOD SUGAR BID 0 Active cholecalciferol, Vitamin D3, 125 mcg (5,000 unit) Capsule Take by mouth. Activ e dapagliflozin-sa xagliptin (Qtern) 10-5 mg Tablet 0 Active insulin glargine (Lantus Solostar U-100 Insulin) 100 unit/mL pen syringe 0 Active levothyroxine (SYNTHROID) 137 mcg tablet 0 Active lisinopriL (PRINIVIL) 20 mg tablet 0 Active omeprazole (PriLOSEC) 40 mg Capsule, Delayed Release(E.C.) 0 Active verapamiL (VERELAN) 240 mg Sustained Release 24 hour capsule 0 Active Active Problems Problem Noted Date Diagnosed Date Plasma cell disorder 07/24/2020 Encounters Date Type Department Care Team Description 09/21/2024 External Device Data [facility] ABSTRACTION Provider, Abstract 09/20/2024 External Device Data [facility] ABSTRACTION Provider, Abstract 09/18/2024 External Device Data [facility] ABSTRACTION Provider, Abstract 09/04/2024 External Device Data [facility]STRACTION Provider, Abstract 08/08/2024 External Device Data [facility] ABSTRACTION Provider, Abstract from Last 3 Months Family History Medical History Relation Name Comments Stroke Brother 2 Lung Cancer Brother 3 Cancer Mother Heart Attack Sister Stroke Sister Relation Name Status Comments Brother 1 Alive Brother 2 Brother 3 Other Father Mother Sister Social History Tobacco Use Types Packs/Day Years Used Date Smoking Tobacco: Never Tobacco Cessation:Counseling Given: Not Answered Alcohol Use Standard Drinks/Week Comments Never 0 (1 standard drink = 0.6 oz pur e alcohol) Comments No Sex and Gender Information Value Date Recorded Sex Assigned at Not on file Legal Sex Female 10:37 AM TRAIN BRAKEMAN Gender Identity Not on file Sexual Orientation Not on file Last Filed Vital Signs Vital Sign Reading Time Taken Comments Blood Pressure 146/51 02/22/2024 10:01 AM CDT Pulse 58 02/22/2024 10:01 AM CDT Temperature 36.3 C (97.3 F) 02/22/2024 9:57 AM CDT Respiratory Rate 16 02/22/2024 9:57 AM CDT Oxygen Saturation 95% 02/22/2024 9:57 AM CDT Inhaled Oxygen Concentration - - Weight 99.3 kg (219 lb) 02/22/2024 9:57 AM CDT Height 161.9 cm (5' 3.75 ) 02/04/2022 9:49 AM CD T Body Mass Index 37.89 02/04/2022 9:49 AM CDT Plan of Treatment Upcoming Encounters Date Type Department Care Team (Late st Contact Info) Description 02/25/2025 10:00 AM CDT Office Visit [facility] Oncology and Hematology - [place] [address] [place] [address] Samuel Morejon MD [address] [facility] [address] [place] [address] Health Maintenance Due Date Last Done Comments DIABETES ANNUAL FOOT EXAM 11/27/1965 DIABETES MICROALBUMIN ANNUAL SCREEN 11/27/1965 LDL CHOLESTEROL ANNUAL 11/27/1965 DTAP/TDAP/TD VACCINES (1 - Tdap) 11/27/1966 ZOSTER VACCINE (1 of 2) 11/27/1997 PNEUMOCOCCAL VACCINE 50+ YEA RS (2 of 2 - PPSV23) 05/12/2021 03/17/2021, 03/17/2018 DIABETES ANNUAL RETINAL EXAM 11/23/202204/2022, 04/13/2020, 03/25/2019, Additional history exists RSV VACCINE (60+ or ) (1 - 1-dose 75+ series) 11/27/2022 INFLUENZA VACCINE (#1) 2024 03/31/2021, 2015 DIABETES HBA1C Q 6 MONTHS 08/28/20242023, 08/08/2023, 01/27/2023, Additional history exists COLORECTAL SCREENING Discontinued 06/28/2018, 06/28/20 18 Colorectal Cancer Screening Discontinued OSTEOPOROSIS SCREENING Completed 12/27/2021, 2018 FIT-DNA Q 3 years Discontinued FIT/FOBT Q 1 year Discontinued Flex Sig/CT Colonography Q 5 years Discontinued Procedures Procedure Name Priority Date/Time Associated Diagnosis Comments HEMOGLOBIN A1C Routine 01/26/2021 from Last 3 Months or Most Recently Relevant to Health Maintenance Results * HEMOGLOBIN A1C (01/26/2021) Blood us Abstract Provider CHEMISTRY ORDERABLES Final Res ult from Last 3 Months or Most Recently Relevant to Health Maintenance Insurance MEDICARE PART A AND B [facility] Care Teams Records Coordinator Relationship Specialty Start Date End Date Chad Luque MD [address] [place] [address] PCP - General Family Practice 02/21/23
--- OUTSIDE RECORDS SUMMARY | 2024-09-30 18:47 | XMS_ITS | Continuity of Care Document ---
Author Organization [facility] Address [address] [place] [address] [place] [address] Phone Care Team Providers Care Professor Of Biochemistry Name Role Phone Konrad Botello Unavailable Unavailable Procedures Procedure Date Visual Field Examination(s) Office/outpatient Visit, Est Office/outpatient Visit, Est Visual Field Examination(s) Office/outpatient Visit, Est Fundus Photography W/ Report Office/outpatient Visit, Est Visual Field Examination(s) Office/outpatient Visit, Est Fundus Photography W/ Report Office/outpatient Visit, Est Visual Field Examination(s) Advance Directives Directive Yes / No Effective Date File Name No Information Encounters Encounter Description Practice Location Reason(s) For Visit Diagnoses Date Provider Providers Copied on Encounter [facility], [address] [place] [address] [address], [place], [place], [id number], [place] tel:[phone] [facility] No Information Mar- 0-201 0 Ayan Silvestre. [facility], [place], [address], [place]. tel:[phone] Referring Provider: Tucker [facility] [address], [place], [address]. tel:[phone] Office/outpat ient Visit, Est [facility], [address] [place] [address] [address], [place], [place], [id number], [place] tel:[phone] [facility] No Information 7-201 0 Ayan Silvestre. [address], [place], [place], [facility], . tel:[phone] Office/outpat ient Visit, [facility], [address], [place], [place], [id number], [place] tel:[phone] [facility] No Information 3 1-200 9 Doikaleigh Edangelica. [address] , [address], [place], [facility], [place]. tel:[phone] Formerly [facility], [address] [place] [address] [address], [place], [place], [id number], [place] tel:[phone] [facility] No Information 9-200 9 Ayan Silvestre. [address] [facility] [address] , [address], [place], [facility], [place]. tel:[phone] Referring Provider: Konrad Humphreys [facility] [address], [place], [facility]. tel:[phone] Office/outpat ient Visit, [facility], [address] [place] [address] [address], [place], [place], [id number], [place] tel:[phone] [facility] No Information Fe-2 3-200 9 Ayan Silvestre. [address] , [address], [place], [facility], [place]. tel:[phone] Referring Provider: Konrad Humphreys [facility] [address], [place], [facility]. tel:[phone] Office/outpat ient Visit, [facility], [address] [place] [address] [address], [place], [place], [id number], [place] tel:[phone] [facility] No Information Apr-2 0-200 8 Doikaleigh Silvestre. [address] , [address], [place], [address], [place]. tel:[phone] Formerly [facility], [address], [place], [place], [address], [place] tel:[phone] [facility] No Information Timi-0 3-200 8 Ayan Silvestre. [address], [address], [place], [facility], [place]. tel:[phone] Referring Provider: Konrad Humphreys, [address], [place], [facility]. tel:[phone] Office/outpat ient Visit, [facility], [address], [place], [place], [id number], [place] tel:[phone] [facility] No Information 3 0-200 8 Ayan Silvestre. [facility] [address], [address], [place], [facility], [place]. tel:[phone] Referring Provider: Konrad Humphreys, [address], [place], [facility]. tel:[phone] Office/outpat ient Visit, [facility], [address], [place], [place], [id number], [place] tel:[phone] [facility] No Information Sep-2 6-200 7 Ayan Silvestre. [facility] [address], [address], [place], [facility], [place]. tel:[phone] Formerly [facility], [address], [place], [place], [address], [place] tel:[phone] [facility] No Information May-2 9-200 7 Ayan Silvestre. [facility] [address], [address], [place], [facility], [place]. tel:[phone] Referring Provider: Kornad Humphreys, [address], [place], [address]. tel:[phone] Family History Family Member Type Diagnosis Age At Onset No Information Payers Payer name Insurance type Covered constitution party ID Chirag sue(s) [facility] CI [id number] Social History Type Description Quantity Date Captured Comments Sex Female Smoking Status No Information Chief Complaint And Reason For Visit No Information Reason For Referral Reason For Referral No Information History Of Present Illness Encounter Date Complaint History Of Prese nt Illness No Information Functional Status Date Functional Assessmen t No Information Instructions Date Instruction Additional Infor mation No Information Assessments Type Assessment Date No Information Patient Care Teams Name Effective Dates (start - stop) Status Members No Information
== END 2024-09-30 16:30 | disposition home or self-care (01) ==
PROVIDERS: PCP Nurse Practitioner; Visit Provider Internal Medicine Nephrology
DX: N18.31 Chronic kidney disease, stage 3a (principal)
CPT/HCPCS: 36415; 80069; 82570; 83970; 84156; 85027

== ENCOUNTER 2024-12-03 07:43 | Outpatient (CLI) | payer MEDICARE, SELFPAY ==
--- OUTSIDE RECORDS SUMMARY | 2024-12-03 07:47 | XMS_ITS | Clinical Summary ---
Author Organization [facility] Address [address] [facility], [address] [address] Phone Care Team Providers Care Petrophysical Engineer Name Role Phone Zoran Quiroz MD Primary Care Provider [phone] Social History Tobacco Use Types Packs/Day Years Used Date Smoking Tobacco: Never Assessed Comments Unknown Sex and Gender Information Value Date Recorded Sex Assigned at Not on file Legal Sex Female 7:05 PM CDT Gender Identity Not on file Sexual Orientation Not on file Plan of Treatment Health Maintenance Due Date Last Done Comments DEXA Bone Density 1945 Hepatitis C Virus (HCV) Screening 1945 TdaP Immunization 1945 Pneumococcal Immunization (5 0+ years) (1 of 1 - PCV) 11/27/1997 Zoster Immunization (1 of 2) 11/27/1997 Respiratory Syncytial Virus (RSV) Immunization (Adult) (1 - 1-dose 75+ series) 11/27/2022 Influenza Immunization (#1) 2024 SARS-COV-2 Immunization ( season) 2024 Colonoscopy High Risk Discontinued 06/28/2018 Colonoscopy Discontinued 06/28/2018 Colorectal Cancer Screening Discontinued Cologuard Discontinued Hepatitis B Immunization Aged Out No longer eligible based on patient's age to complete this topic Immunochemical Fecal Occult Blood Discontinued Meningococcal Immunization (ACWY) Aged Out No longer eligible based on patient's age to complete this topic Rotavirus Immunization Aged Out No lo nger eligible based on patient's age to complete this topic Procedures Procedure Name Priority Date/Time Associated Diagnosis Comments HM COLONOSCOPY Routine 06/28/2018 from Last 3 Months or Most Recently Relevant to Health Maintenance Results * COLONOSCOPY (06/28/2018) Ramakrishna Claire Bora BOB PROCEDURE/MINOR SURGICAL ORDERA BLES Final Result from Last 3 Months or Most Recently Relevant to Health Maintenance Insurance MEDICARE Care Teams Petrophysical Engineer Relationship Specialty Start Date End Date Zoran Quiroz MD PCP - General Internal Medicine 06/06/18
--- OUTSIDE RECORDS SUMMARY | 2024-12-03 07:47 | XMS_ITS | Clinical Summary ---
Author Organization [facility] Address [address] [place] [address] Phone Care Team Providers Care Blow Mold Operator Name Role Phone Musa Booth MD Primary Care Provider [phone] Allergies No known active allergies Medications atorvastatin (LIPITOR) 40 MG tablet 0 Active azelastine (ASTELIN) 0.1 % nasal spray 0 Active Qtern 10-5 MG tablet 0 Active Prodigy No Coding Blood Gluc test strip TEST BLOOD SUGAR BID 0 Active Lantus SoloStar 100 UNIT/ML injection 0 Active Synthroid 137 MCG tablet 0 Active omeprazole (PriLOSEC) [address] capsule 0 Active verapamil ER (VERELAN) 240 MG 24 hr capsule 0 Active Travoprost (TRAVATAN OP) Administer into affected eye(s) Active Biotin 10 MG tablet Take by mouth Active Cholecalciferol (Vitamin D3) 125 MCG (5000 UT) capsule Take by mouth Acti ve Probiotic Product (PROBIOTIC-10 PO) Take by mouth Active Calcium 600-200 MG-UNIT per tablet Take 1 tablet by mouth 1 (one) time each day Active NovoFine Plus 32G X 4 MM misc 1 (one) time each day 1 Active lisinopril (PRINIVIL) 40 MG tablet Take 40 mg by mouth 1 (one) time each day 1 Active indapamide (LOZOL) 1.25 MG tablet Take 1 tablet (1.25 mg total) by mouth 1 (one) time each day in the morning 30 tablet 11 2 Active Active Problems Problem Noted Date Diagnosed Date 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 07/24/2020 Type 2 diabetes mellitus wit h diabetic chronic kidney disease 06/21/2020 Other and unspecified hyperlipidemia 06/21/2020 Gastroesophageal reflux disease 06/21/2020 Essential hypertension 06/21/2020 Persistent proteinuria 06/21/2020 Hematoma of subdural space of neuraxis 6 Immunizations Immunization Administration Dates Next Due Fluzone High-Dose 03/24/2020 Influenza (IM) Preservative Free 04/16/2016 Influenza TIV (IM) 03/31/2021 Pneumococcal Conjugate 03/17/2018 Pneumococcal Conjugate 13-Valent 03/17/2021 Social History Tobacco Use Types Packs/Day Years Used Date Smoking Tobacco: Never Smokeless Tobacco: Never Alcohol Use Standard Drinks/Week Comments Yes 0 (1 standard drink = 0.6 oz pur e alcohol) yearly Comments Unknown Sex and Gender Information Value Date Recorded Sex Assigned at Not on file Legal Sex Female 10:41 AM MDT Gender Identity Not on file Sexual Orientation [...] and Medium Risk (2 of 3 - PPSV23) 03/17/2022 03/17/2021 Influenza Vaccine (Season Ended) 2025 03/31/20 21, 04/16/2016 Insurance MEDICARE [facility] Care Teams Blow Mold Operator Relationship Specialty Start Date End Date Musa Booth MD [address] [place] [address] PCP - General Family Medicine 04/29/20
--- OUTSIDE RECORDS SUMMARY | 2024-12-03 07:47 | XMS_ITS | Clinical Summary ---
Author Organization [facility] Peter verdugo Michellemil Address [address] [place] [address] Care Team Providers Care Manufacturing Supervisor Name Role Phone Chad Luque MD Primary Care Provider [phone] Allergies No known active allergies Medications calcium-vitamin [...] Encounters Date Type Department Care Team Description 11/12/2024 External Device Data [facility] ABSTRACTION Provider, Abstract 11/12/2024 External Device Data [facility] ABSTRACTION Provider, Abstract 11/12/2024 External Device Data [facility] ABSTRACTION Provider, Abstract 10/02/2024 External Device Data [facility] ABSTRACTION Provider, Abstract 09/21/2024 External Device Data [facility] ABSTRACTION Provider, [...] on file Legal Sex Female 10:37 AM MAINTENANCE MECHANIC Gender Identity Not on file Sexual Orientation [...] Description 02/25/2025 10:00 AM CDT Office Visit [facility] Oncology and Hematology - [place] [address] [facility] [address] [place] [address] Samuel Morejon MD [address] [facility] [address] [place] [address] Health Maintenance Due Date Last [...] MONTHS 08/28/20242023, 08/08/2023, 01/27/2023, Additional history exists OSTEOPOROSIS SCREENING 12/27/2026 12/27/2021, 2018 COLORECTAL SCREENING Discontinued 06/28/2018, 06/28/20 18 Colorectal Cancer Screening Discontinued FIT-DNA Q 3 years Discontinued FIT/FOBT Q [...] Maintenance Insurance MEDICARE PART A AND B [facility] TRADITIONAL Care Teams Manufacturing Supervisor Relationship Specialty Start Date End Date Chad Luque MD [address] [place] [address] PCP - General Family Practice 02/21/23
--- OUTSIDE RECORDS SUMMARY | 2024-12-03 07:47 | XMS_ITS | Continuity of Care Document ---
Author Organization [facility] Address [address] [place] [address] [place] [address] Phone Care Team Providers Care Word Processing Machine Operator Name Role Phone Konrad Botello Unavailable Unavailable [...] Diagnoses Date Provider Providers Copied on Encounter [facility], [address] [place] [address] [address], [place], [place], [id number], [place] tel:[phone] [facility] No Information Mar- 0-201 0 Ayan Silvestre. [address], [place], [address], [place]. tel:[phone] Referring Provider: Tucker Garcia [facility] [address], [place], [address]. tel:[phone] Office/outpat ient Visit, [facility], [address] [place] [address] [address], [place], [place], [id number], [place] tel:[phone] [facility] No Information 7-201 0 Ayan Silvestre. [address], [place], [place], [facility], . tel:[phone] Office/outpat ient Visit, [facility], [address], [place], [place], [id number], [place] tel:[phone] [facility] No Information 3 1-200 9 Doikaleigh Edangelica. [address] , [address], [place], [facility], [place]. tel:[phone] [facility], [address] [place] [address] [address], [place], [place], [id number], [place] tel:[phone] [facility] No Information 9-200 9 Ayan Silvestre. [address] [facility] [address] , [address], [place], [facility], [place]. tel:[phone] Referring Provider: Konrad Humphreys [facility] [address], [place], [facility]. tel:[phone] Office/outpat ient Visit, [facility], [address] [place] [address] [address], [place], [place], [id number], [place] tel:[phone] [facility] No Information Fe-2 3-200 9 Ayan Silvestre. [address] , [address], [place], [facility], [place]. tel:[phone] Referring Provider: Konrad Humphreys [facility] [address], [place], [facility]. tel:[phone] Office/outpat ient Visit, [facility], [address] [place] [address] [address], [place], [place], [id number], [place] tel:[phone] [facility] No Information Apr-2 0-200 8 Doikaleigh Silvestre. [address] , [address], [place], [address], [place]. tel:[phone] [facility], [address], [place], [place], [id number], [place] tel:[phone] [facility] No Information Timi-0 3-200 8 Ayan Silvestre. [address], [address], [place], [facility], [place]. tel:[phone] Referring Provider: Konrad Humphreys, [address], [place], [facility]. tel:[phone] Office/outpat ient Visit, [facility] [place] [facility], [address], [place], [place], [id number], [place] tel:[phone] [facility] No Information 3 0-200 8 Ayan Silvestre. [facility] [address], [address], [place], [facility], [place]. tel:[phone] Referring Provider: Konrad Humphreys, [address], [place], [facility]. tel:[phone] Office/outpat ient Visit, [facility], [address], [place], [place], [id number], [place] tel:[phone] [facility] No Information Sep-2 6-200 7 Ayan Silvestre. [facility] [address], [address], [place], [facility], [place]. tel:[phone] [facility], [address], [place], [place], [id number], [place] tel:[phone] [facility] No Information May-2 9-200 7 Ayan Silvestre. [facility] [address], [address], [place], [facility], [place]. tel:[phone] Referring Provider: Konrad Humphreys, [address], [place], [address]. tel:[phone] Family History Family Member Type Diagnosis Age At Onset No Information Payers Payer name Insurance type Covered constitution party ID Chirag sue(s) [facility] CI [id number] Social History Type Description Quantity Date Captured [...]
[2024-12-03 08:08] LABS: Alanine Aminotransferase 20 U/L (6-35); Albumin Level 4.3 g/dL (3.5-5.1); Alkaline Phosphatase 68 U/L (38-126); Anion Gap 8 mmol/L (4-12); Aspartate Amino Transferase 28 U/L (14-36); Bilirubin,Total 0.7 mg/dL (0.2-1.3); Blood Urea Nitrogen 32 mg/dL (7-17); Calcium 9.6 mg/dL (8.4-10.2); Carbon Dioxide 26 mmol/L (22-30); Chloride 107 mmol/L (98-107); Cholesterol 142 mg/dL (0-200); Estimated Glomerular Filt Rate 43; Glucose 166 mg/dL (65-110); HDL Direct 33 mg/dL; Potassium 4.2 mmol/L (3.4-5.0); Sodium 141 mmol/L (137-145); Triglycerides 241 mg/dL (<150)
[2024-12-03 08:19] LABS: LDL Cholesterol Direct 52 mg/dL
[2024-12-03 08:20] LABS: Hemoglobin A1C 7.9 % (<5.7)
== END 2024-12-03 07:44 | disposition home or self-care (01) ==
PROVIDERS: PCP Nurse Practitioner; Visit Provider Nurse Practitioner
DX: E78.5 Hyperlipidemia, unspecified (principal); E11.9 Type 2 diabetes mellitus without complications
CPT/HCPCS: 36415; 80053; 80061; 83036

== ENCOUNTER 2025-02-13 12:39 | Emergency (ER) | payer MEDICARE, SELFPAY ==
--- NOTE | ~2025-02-13 | XR_ITS ---
HISTORY: fall, anterior knee pain/swelling COMPARISON: None TECHNIQUE: 4 views of the right knee were performed FINDINGS: No displaced acute or subacute fracture. Medial and lateral tibiofemoral joint space narrowing is identified. Cortical irregularity along the medial margin of the tibial plateau, likely secondary to projection a nd possible osteophyte formation rather than an acute fracture. Clinical correlation may be performed regarding point tenderness in this location with follow-up CT examination, if point tenderness is pr esent. No suprapatellar joint effusion is identified. The infrapatellar joint space is clear. IMPRESSION: Cortical irregularity along the medial margin of the tibial plateau, likely secondary to projection and possible osteophyte formation rather than acute fracture. Clinical correlation may be performed regarding point tenderness in this location which follow-up CT examination of point tenderness is present. Reviewed, dictated and finalized at location A. IMPRESSION: Cortical irregularity along the medial margin of the tibial platea u, likely secondary to projection and possible osteophyte formation rather than acute fracture. Clinical correlation may be performed regarding point tenderness in this locati on which follow-up CT examination of point tenderness is present.
--- NOTE | ~2025-02-13 | XR_ITS ---
HISTORY: fall, mid low back/right side low back pain- bruise COMPARISON: 07/02/2016 TECHNIQUE: 2 view lumbar spine. FINDINGS: Grade 1 anterolisthesis (8 mm) of L4 onto L5 is identified, unchanged from 2016. Significant facet arthropathy is present. No acute compression fracture is noted. Significant degenerative disease is identified within the lower thoracic spine. There are bridging endplate osteophytes at multiple levels in the lower thoracic spine, consistent wi th diffuse idiopathic skeletal hyperostosis (DISH). Disc spaces and vertebral body heights are well maintained. There are no lytic or sclerotic lesions. Calcified atherosclerotic disease is noted within the abdominal aorta. Paraspinal soft tissues are otherwise unremarkable. IMPRESSION: Stable evaluation of the lumbar spine when compared with 2016 examination, demonstrating degenerative disease without acute fracture as detailed above. Reviewed, dictated and finalized at location A. IMPRESSION: Stable evaluation of the lumbar spine when compared with 2016 examination, demo nstrating degenerative disease without acute fracture as detailed above.
--- NOTE | 2025-02-13 12:40 | ED_ITS ---
HPI - Fall General Chief Complaint: Fall Stated Complaint: FALL Time Seen by Provider: 02/13/25 12:40 Source: patient Mode of arrival: ambulatory Limitations: no limitations History of Present Illness HPI Narrative: Gladys is a 79 year old female patient presenting ot the clinic today with c/o fall injury that occurred last night around 7:00 p.m. She reports she was walking down concrete steps, slipped, and fell down the steps causing an abrasion to her right forearm, right elbow, and right anterior knee. Has swelling and pain to the right anterior knee and also bruising and pain to the left mid lower back. Related Data Home Medications ?Medication ?Instructions ?Recorded ?Confirmed ?Last Taken ?Type calcium carbonate (Calcium 600) 600 mg PO DAILY 02/03/23 12/10/24 Unknown History cholecalciferol (vitamin D3) 125 125 mcg PO DAILY 02/03/23 12/10/24 Unknown History mcg (5,000 unit) capsule latanoprost 0.005 % eye drops 1 drp EACH EYE DAILY 02/03/23 12/10/24 Unknown History azelastine 137 mcg (0.1 %) nasal 137 mcg intranasal Q12H PRN 09/22/23 12/10/24 Unknown History spray Congestion dapagliflozin 10 mg-saxagliptin 5 1 tablet PO DAILY 12/10/24 12/10/24 Unknown History mg tablet (Qtern) Allergies Allergy/AdvReac Type Severity Reaction Status Date / Time No Known Allergies Allergy Mild Verified 02/13/25 12:40 Review of Systems Review of Systems: Pertinent positives per HPI. Patient denies any fever, chills, rash, headache, visual changes, dizziness, cough, shortness of breath, chest pain, palpitations, nausea, vomiting, diarrhea, constipation, abdominal pain, or any urinary issues. [facility] Past Medical History Medical History Colon cancer Other and unspecified hyperlipidemia Chronic kidney disease, stage 3a Essential hypertension GERD (gastroesophageal reflux disease) Adult hypothyroidism CKD (chronic kidney disease) stage 3, GFR 30-59 ml/min DM w/o complication type II Surgical History Surgical History History of knee surgery H/O carpal tunnel repair History of cholecystectomy H/O: hysterectomy Family History Family History Mother Family history of malignant neoplasm Other Diabetes mellitus Heart disease Hypertension Social History Social History Smoking status: Never smoker Second hand tobacco smoke exposure: No Alcohol intake: current Substance use: never Substance use type: does not use Do You Feel Safe in your Home?: Yes Lack of Transportation: No Lack of Food: Never True Current Housing: I Have Housing Concerned About Future Housing: No Difficulty Paying Gas/Electric Bills: No Difficulty Paying for Meds: No Currently Unemployed: No Education: High School Diploma/GED Difficulty w/ Childcare or Family Care: No Living arrangements: with family Occupation/Education: retired Gender identity (if verbalized by the patient): Female Spiritual care concerns: No Comments At the time of my signature, I reviewed and agree with the nursing past medical, surgical, social, and family history. There is no relevant family history pertinent to the patient complaint. Exam Narrative: General: Well-developed, well nourished, in no apparent distress Head: Normocephalic, atraumatic. Cardio: Regular rate and rhythm, s1 and s2 normal, no murmur appreciated. Resp: Clear to auscultation bilaterally, no rhonchi, rales, wheezing or rubs. Musculoskeletal: No deformity, tender to palpation over the right anterior knee joint and the left mid/lower lumbar spine with bruising noted, grossly normal range of motion, muscle strength strong and equal, peripheral pulse strong, 1+ pitting edema in bilateral lower extremities, no cyanosis, limping gait and station Integumentary: [place], warm, and dry, abrasion to the right medial forearm and posterior elbow, small superficial cut-approximately 0.5 cm to the right anterior knee Course Course Emergency Course: Portions of this record may have been created with voice recognition software. Level of Care: Express Care Visit Vital Signs Vital signs: Vital Signs Temperature 37.2 C 02/13/25 12:45 Pulse Rate 63 02/13/25 12:45 Respiratory Rate 12 02/13/25 12:45 Blood Pressure 151/56 H 02/13/25 12:45 Pulse Oximetry 99 02/13/25 12:45 Temperature 37.2 C 02/13/25 12:45 Pulse Rate 63 02/13/25 12:45 Respiratory Rate 12 02/13/25 12:45 Blood Pressure 151/56 H 02/13/25 12:45 Pulse Oximetry 99 02/13/25 12:45 Vital signs reviewed MDM - Fall MDM Narrative Medical decision making narrative: At the time of visit patient is resting comfortably on the exam table. Patient appears to be nontoxic. C/o fall injury that occurred last night around 7:00 p.m. She reports she was walking down concrete steps, slipped, and fell down the steps causing an abrasion to her right forearm, right elbow, and right anterior knee. Has swelling and pain to the right anterior knee and also bruising and pain to the left mid lower back. Tdap, x-ray of the lumbar spine, and x-ray of the right knee was ordered Diagnostics: X-ray of the right knee shows a cortical irregularity possible osteophyte formation but cannot exclude an acute fracture. Patient has point tenderness over the anterior medial knee joint, x-ray of the lumbar spine shows no acute fracture or malalignment. Medications: Tdap 0.5 mL IM given in the clinic today Plan: Discussed patient's case with diesel stationary engineer ortho-Dr. Johnson and he reviewed the x-rays. Recommends toe touch weight bearing with walker and he will see the patient on either Monday or Monday of next week. Patient has walker at home. Ordered Chaitanya wrap and ice pack. Sensation, circulation, and motion within normal limits after application of the Chaitanya wrap. Supportive measures were discussed with the patient and they voiced understanding discharge instructions and agrees to treatment plan. Return precautions reviewed Differential Diagnosis Differential diagnosis: Likely compression fracture and other (Tibia fracture, femur fracture, knee joint effusion/swelling, contusion, abrasion, vertebral fracture, soft tissue injury) Imaging Data Radiologist's impression: ITS Impressions Knee X-Ray 02/13/25 13:42 IMPRESSION: Cortical irregularity along the medial margin of the tibial plateau, likely secondary to projection and possible osteophyte formation rather than acute fracture. Clinical correlation may be performed regarding point tenderness in this location which follow-up CT examination of point tenderness is present. Lumbar Spine X-Ray 02/13/25 13:48 IMPRESSION: Stable evaluation of the lumbar spine when compared with 2016 examination, demonstrating degenerative disease without acute fracture as detailed above. Discharge Plan Discharge Clinical Impression: Fall with injury, Acute pain of right knee, Low back pain, Abrasion Patient Disposition: Home Condition: Stable Instructions: Antibiotic Form, Acute Low Back Pain (ED), Abrasion (ED), Knee Pain (ED) Additional Instructions: Tdap given in the clinic today Rest, ice, elevate, and wear chaitanya wrap as directed Apply ice for 20 minutes at a time- 20min on and 20 minutes off for the next 24 hours. Tylenol/motrin for pain as discussed. Use walker with toe-touch weight-bearing of the right lower extremity Follow up with your PCP if symptoms persist more than [address] Johnson office to schedule an appointment-call office today to schedule [phone]. He will see you in the office on Monday or Monday of next week. Patient Language: Turkish Prescriptions: No Action latanoprost 0.005 % drops 1 drp EACH EYE DAILY calcium carbonate [Calcium 600] 600 mg calcium (1,500 mg) tablet 600 mg PO DAILY cholecalciferol (vitamin D3) 125 mcg (5,000 unit) capsule 125 mcg PO DAILY Qtern 10-5 mg tablet 1 tablet PO DAILY insulin glargine [Lantus Solostar U-100 Insulin] 100 unit/mL (3 mL) insulin pen 54 unit SUB-Q DAILY Qty: 45 3RF Rx Instructions: Please send 90 day supply azelastine 137 mcg (0.1 %) aerosol,spray 137 mcg NASAL Q12H PRN (Reason: Congestion) (DME) Comfort EZ Pen [place] 32 gauge x 5/16 needle See Rx Instructions .ROUTE .MEDSUPPLY Qty: 100 1RF Rx Instructions: USE WITH LANTUS DIRECTED Prodigy No Coding Strip See Rx Instructions .ROUTE .COMPLEX Qty: 200 1RF Dose Instruction: TEST BLOOD SUGAR TWICE DAILY Rx Instructions: TEST BLOOD SUGAR TWICE DAILY (DME) NovoFine Plus 32 gauge x 1/6 needle See Rx Instructions .ROUTE .MEDSUPPLY Qty: 100 1RF Rx Instructions: Use once daily lisinopril 30 mg tablet 30 mg PO BID Qty: 180 3RF omeprazole 40 mg capsule,delayed release(DR/EC) 40 mg PO DAILY Qty: 90 1RF Rx Instructions: . Kerendia 10 mg tablet 10 mg PO DAILY Qty: 90 3RF indapamide 1.25 mg tablet 1.25 mg PO DAILY Qty: 90 3RF Qtern 10-5 mg tablet See Rx Instructions .ROUTE .COMPLEX Qty: 90 1RF Dose Instruction: TAKE 1 TABLET BY MOUTH DAILY Rx Instructions: TAKE 1 TABLET BY MOUTH DAILY levothyroxine [Synthroid] 137 mcg tablet 137 mcg PO DAILY Qty: 90 3RF verapamil 240 mg capsule,ext rel. pellets 24 hr 240 mg PO DAILY Qty: 90 3RF rosuvastatin [Crestor] 40 mg tablet 40 mg PO DAILY Qty: 90 1RF Follow-up/Referrals: Jake Granger APRN [Primary Care Provider] - Kory Johnson MD [Physician] - 02/17/25 (right knee pain s/p fall) Time of Disposition: 14:16 Quality NIHSS Nursing Documentation ED NIHSS nursing documentation: reviewed/agree
[2025-02-13 12:45] VITALS: BP 151/56; PULSE 63; RESP 12; TEMP 37.2; O2SAT 99
[2025-02-13] MEDS: TETANUS,DIPHTHERIA,AC PERTUSSIS ADULT (0.5 ML) BOOSTRIX IM (13:30)
== END 2025-02-13 14:30 | disposition home or self-care (01) ==
PROVIDERS: Emergency Provider Nurse Practitioner Family; PCP Nurse Practitioner
DX: S50.811A Abrasion of right forearm, initial encounter (principal); M54.50 Low back pain, unspecified; M25.561 Pain in right knee; E11.22 Type 2 diabetes mellitus with diabetic chronic kidney disease; I12.9 Hypertensive chronic kidney disease with stage 1 through stage 4 chronic kidney disease, or unspecified chronic kidney disease; N18.31 Chronic kidney disease, stage 3a; Z23 Encounter for immunization; W10.9XXA Fall (on) (from) unspecified stairs and steps, initial encounter
CPT/HCPCS: 72100; 73564; 90471; 90715; 99213; G0463

== ENCOUNTER 2025-05-13 08:33 | Outpatient (CLI) | payer MEDICARE, SELFPAY ==
--- OUTSIDE RECORDS SUMMARY | 2025-05-13 08:52 | XMS_ITS | Clinical Summary ---
Author Organization [facility] Peter verdugo Michellemil Address [address] [place] [address] Care Team Providers Care Needle Molder Name Role Phone Chad Luque MD Primary Care Provider [phone] Allergies No known active allergies Medications calcium-vitamin [...] Encounters Date Type Department Care Team Description 02/19/2025 External Device Data STL ABSTRACTION Provider, Abstract 02/19/2025 Orders Only [facility] Oncology and Hematology [place] [address] [place] [address] Samuel Morejon MD MGUS (monoclonal gammopathy of unknown significance) (Primary Dx) 02/18/2025 External Device Data STL ABSTRACTION Provider, Abstract [...] on file Legal Sex Female 10:37 AM ROENTGENOLOGIST Gender Identity Not on file Sexual Orientation [...] 9:57 AM CDT Height 161.9 cm (5' 3.75) 02/04/2022 9:49 AM CD T Body Mass Index 37.89 02/04/2022 9:49 AM CDT Plan of Treatment Upcoming Encounters Date Type Department Care Team (Late st Contact Info) Description 05/22/2025 2:30 PM ROENTGENOLOGIST Office Visit [facility] Oncology and Hematology - [place] [address] [place] [address] Samuel Morejon MD [address] [facility] [address] [place] [address] Health Maintenance Due Date Last Done Comments DIABETES ANNUAL FOOT EXAM 11/27/1965 DIABETES MICROALBUMIN ANNUAL SCREEN 11/27/1965 LDL CHOLESTEROL ANNUAL 11/27/1965 DTAP/TDAP/TD VACCINES (1 - Tdap) 11/27/1966 Traditional Medicare (ACO) A nnual Wellness Visit 11/27/1966 ZOSTER VACCINE (1 of 2) 11/27/1997 PNEUMOCOCCAL VACCINE 50+ YEA RS (2 of 2 - PPSV23, PCV20, or PCV21) 05/12/2021 03/17/2021, 03/17/2018 DIABETES ANNUAL RETINAL EXAM 11/23/202204/2022, 04/13/2020, 03/25/2019, Additional history exists RSV VACCINE (60+ or ) (1 - 1-dose 75+ series) 11/27/2022 INFLUENZA VACCINE (#1) 2025 03/31/2021, 2015 DIABETES HBA1C Q 6 MONTHS 06/05/20252024, 02/26/2024, 08/08/2023, Additional history exists OSTEOPOROSIS SCREENING 12/27/2026 12/27/2021, [...] Maintenance Insurance MEDICARE PART A AND B [facility] TRADITIONAL Care Teams Needle Molder Relationship Specialty Start Date End Date Chad Luque MD [address] [place] [address] PCP - General Family Practice 02/21/23
--- OUTSIDE RECORDS SUMMARY | 2025-05-13 08:52 | XMS_ITS | Clinical Summary ---
Author Organization [facility] Address [address] [address] Phone Care Team Providers Care Kiln Head House Operator Name Role Phone Zoran Quiroz MD Primary Care Provider [phone] Social History Tobacco Use Types Packs/Day Years Used Date Smoking Tobacco: Never Assessed Comments Unknown Sex and Gender Information Value Date Recorded Sex Assigned at Not on file Legal Sex Female 7:05 PM CDT Gender Identity Not on file Sexual Orientation Not on file Plan of Treatment Health Maintenance Due Date Last Done Comments Hepatitis C Virus (HCV) Screening 1945 TdaP Immunization 1945 Pneumococcal Immunization (5 0+ years) (1 of 1 - PCV) 11/27/1997 Zoster Immunization (1 of 2) 11/27/1997 Medicare Initial AWV [id number] 11/14/2013 Respiratory Syncytial Virus (RSV) Immunization (Adult) (1 - 1-dose 75+ series) 11/27/2022 Influenza Immunization (#1) 2025 SARS-COV-2 Immunization ( - season) 2025 Colonoscopy Discontinued 06/28/2018 Colorectal Cancer Screening Discontinued Cologuard Discontinued Hepatitis B Immunization Aged Out No longer eligible based on patient's age to complete this topic Human Papillomavirus (HPV) Immunization Aged Out No longer eligible b ased on patient's age to complete this topic Immunochemical Fecal Occult Blood Discontinued Meningococcal Immunization (ACWY) Aged Out No longer eligible based on patient's age to complete this topic Rotavirus Immunization Aged Out No lo nger eligible based on patient's age to complete this topic Procedures Procedure Name Priority Date/Time Associated Diagnosis Comments COLONOSCOPY Routine 06/28/2018 from Last 3 Months or Most Recently Relevant to Health Maintenance Results * COLONOSCOPY (06/28/2018) Ramakrishna Claire Montanamckay DO PROCEDURE/MINOR SURGICAL ORDERA BLES Final Result from Last 3 Months or Most Recently Relevant to Health Maintenance Insurance MEDICARE Care Teams Kiln Head House Operator Relationship Specialty Start Date End Date Zoran Qurioz MD PCP - General Internal Medicine 06/06/18
--- OUTSIDE RECORDS SUMMARY | 2025-05-13 08:52 | XMS_ITS | Clinical Summary ---
Author Organization [facility] Address [address] [place] [address] Phone Care Team Providers Care Assembler Fishing Floats Name Role Phone Musa Booth MD Primary Care Provider [phone] Allergies No known active allergies Medications atorvastatin [...] 9:05 AM CDT Height 160 cm (5' 3) 01/31/2022 9:05 AM CDT Body Mass Index 40.03 01/31/2022 9:05 AM CDT Plan of Treatment Health Maintenance Due Date Last Done Comments Pneumococcal PPSV23/PCV13 65 + Years / Low and Medium Risk (2 of 3 - PCV20 or PCV21) 03/17/2022 03/17/2021 Influenza Vaccine (#1) 2025 03/31/2021, 2015 Insurance MEDICARE [id number] Care Teams Assembler Fishing Floats Relationship Specialty Start Date End Date Musa Booth MD [address] [place] [address] PCP - General Family Medicine 04/29/20
[2025-05-13 09:36] LABS: Hematocrit 42.7 % (37.0-47.0); Hemoglobin 13.6 g/dL (12.0-15.0); Mean Corpuscular HGB Conc 31.9 g/dl (32-36); Mean Corpuscular Hemoglobin 29.2 pg (26-34); Mean Corpuscular Volume 91.6 fl (80-100); Platelet Count Result 209 k/mm3 (150-375); Red Blood Count 4.66 M/mm3 (4.2-5.4); White Blood Count 7.7 K/mm3 (4.5-10.0)
[2025-05-13 09:47] LABS: Hemoglobin A1C 7.4 % (<5.7)
[2025-05-13 10:00] LABS: Alanine Aminotransferase 17 U/L (6-35); Albumin Level 4.4 g/dL (3.5-5.1); Alkaline Phosphatase 77 U/L (38-126); Anion Gap 11 mmol/L (4-12); Aspartate Amino Transferase 31 U/L (14-36); Bilirubin,Total 0.6 mg/dL (0.2-1.3); Blood Urea Nitrogen 38 mg/dL (7-17); Calcium 10.1 mg/dL (8.4-10.2); Carbon Dioxide 25 mmol/L (22-30); Chloride 106 mmol/L (98-107); Cholesterol 162 mg/dL (0-200); Estimated Glomerular Filt Rate 39; Glucose 168 mg/dL (65-110); HDL Direct 31 mg/dL; Potassium 4.1 mmol/L (3.4-5.0); Sodium 142 mmol/L (137-145); Total Protein 8.2 g/dL (6.3-8.2); Triglycerides 256 mg/dL (<150)
[2025-05-13 10:02] LABS: Immature Granulocyte Percent A 0.8 % (0-0.5); Lymphocytes Absolute Auto 1.67 K/mm3 (0.9-3.2); Nucleated Red Blood Cells Absolute Auto 0.000 K/mm3 (0.0-0.012); Nucleated Red Blood Cells Perc 0.0 % (0.0-0.2)
[2025-05-13 10:04] LABS: Total Protein Urine Random 97 mg/dL; Ur Ttl Prot Creatinine Ratio 2.11 mg/mg (0-0.20)
[2025-05-13 10:09] LABS: Free T4 Free Thyroxine 1.48 ng/dL (0.78-2.19)
[2025-05-13 10:11] LABS: Parathyroid Intact 32.8 pg/mL (14.5-75.2)
[2025-05-13 10:36] LABS: Thyroid Stimulating Hormone 1.040 uIU/mL (0.465-4.680)
[2025-05-14 12:08] LABS: Immunoglobulin A, Qn 279 mg/dL (64-422); Immunoglobulin G, Qn 1209 mg/dL (586-1602); Immunoglobulin M, Qn 81 mg/dL (26-217)
[2025-05-14 14:09] LABS: Albumin 3.6 g/dL (2.9-4.4); Alpha-1-Globulin 0.2 g/dL (0.0-0.4); Alpha-2-Globulin 1.2 g/dL (0.4-1.0); Gamma Globulin 1.0 g/dL (0.4-1.8)
[2025-05-14 15:09] LABS: Free Lambda Lt Chains, Serum 31.3 mg/L (5.7-26.3); Kappa/Lambda Ratio, Serum 1.36 (0.26-1.65)
== END 2025-05-13 08:34 | disposition home or self-care (01) ==
PROVIDERS: PCP Nurse Practitioner; Referring Provider Internal Medicine Hematology & Oncology; Visit Provider Internal Medicine Nephrology
DX: D47.2 Monoclonal gammopathy (principal); E78.5 Hyperlipidemia, unspecified; E03.9 Hypothyroidism, unspecified; I12.9 Hypertensive chronic kidney disease with stage 1 through stage 4 chronic kidney disease, or unspecified chronic kidney disease; E11.22 Type 2 diabetes mellitus with diabetic chronic kidney disease; N18.31 Chronic kidney disease, stage 3a
CPT/HCPCS: 36415; 80053; 80061; 82570; 82784; 83036; 83521; 83970; 84100; 84155; 84156; 84165; 84439; 84443; 85025